=== PATIENT | male | born 1975 | race Caucasian/White ===

== ENCOUNTER 2021-11-16 12:33 | Inpatient (IN) | payer BC ==
[~2021-11-16] VITALS: Ht 172 cm; Wt 100.2 kg
--- NOTE | 2021-11-16 13:10 | ED Neurological Problem ---
General Chief Complaint: Neuro-Stroke Like Symptoms Stated Complaint: BLURRED VISION,DIZZINESS, HIGH BP 255/147 Nursing Triage Note: ARRIVED VIA WC TO ROOM 01 WITH COMPLAINTS OF HYPERTENSION. STATES HE HAS NOT BEEN TAKING HIS MEDS DUE TO NO INSURANCE. COMPLAINS OF HEADACHE AND BLURRED VISION. DENIES CHEST PAIN. Source: patient, family () Exam Limitations: no limitations History of Present Illness Date Seen by Provider: Nov 16, 2021 Time Seen by Provider: 12:55 Initial Comments Patient is a 46-year-old male who presents to the emergency department today wi th a chief complaint of generalized weakness, headache, "blurred vision" but on further history taking is actually double vision. He had multiple episodes of emesis this morning. Patient states he woke up in the middle of the night feeling like this. He has history of hypertension but has not been on medications for the last year and a half secondary to job loss and insurance lo ss. He is a smoker. Has been "sweating" all day long and not feeling well. Denies chest pain or shortness of breath. No abdominal pain. No numbness tingling or weakness in his extremities. His states that his gait has been off significantly this morning. No recent febrile illnesses. No unusual medications. He has been on hydralazine before. HIs states his high blood pressure was hard to treat - that it would sometimes take 3 doses of the hydralazine to get his BP down. All other review of systems reviewed and negative except as stated. Timing/Duration: other (12 hours) Severity: moderate Associated Symptoms: confusion, trouble walking, vision changes, other (headache) Allergies and Home Medications Allergies Coded Allergies: No Known Drug Allergies (Unverified , 11/16/21) Patient Home Medication List Home Medication List Reviewed: Yes Review of Systems Review of Systems Constitutional: see HPI, malaise Eyes: Blurred Vision, Decreased Acuity, Vision Changes ("double") Ears, Nose, Mouth, Throat: no symptoms reported Respiratory: no symptoms reported Cardiovascular: no symptoms reported Gastrointestinal: no symptoms reported Genitourinary: no symptoms reported Musculoskeletal: no symptoms reported Skin: other (sweating) Psychiatric/Neurological: Headache All Other Systems Reviewed Negative Unless Noted: Yes Past Dwmtzfz-Zgcgue-Jyyzrm Hx Patient Social History Smoking Status: Current Everyday Smoker Substance use?: No Alcohol Use?: No Immunizations Up To Date Second COVID19 Vaccination Jose Angel: UNKNOWN DATE COVID19 Vaccine Leaflet Or Newspaper Deliverer: SHANNAN Physical Exam Vital Signs Vital Signs - First Documented 11/16/21 12:45 Temp 36.3 Pulse 116 Resp 16 B/P (MAP) 246/148 (180) Pulse Ox 97 O2 Delivery Room Air Capillary Refill : Less Than 3 Seconds Height, Weight, BMI Height: '" Weight: lbs. oz. kg; 32.00 BMI Method: General Appearance: WD/WN, moderate distress, other (diaphoresis) HEENT: PERRL/EOMI, pharynx normal Neck: supple, normal inspection Respiratory: lungs clear, normal breath sounds, no respiratory distress, no accessory muscle use Cardiovascular: regular rate, rhythm, tachycardia (120's), systolic murmur (LUSB 3/6) Gastrointestinal: normal bowel sounds, non tender, soft Extremities: normal range of motion, non-tender, normal inspection, no pedal edema, no calf tenderness Neurologic/Psychiatric: no motor/sensory deficits, alert, normal mood/affect, oriented x 3, other (RIGHT LATERAL GAZE PALSY; normal strength and sensation) Crainal Nerves: normal hearing, normal speech, PERRL, abnormal eye position; No abnormal gag reflex Coordination/Gait: negative Romberg's sign, ABN nose to finger (R), ABN nose to finger (L) Motor/Sensory: no motor deficit, no sensory deficit, no pronator drift Skin: normal color, diaphoresis Stroke Onset of Symptoms Date of Onset of Symptoms: Nov 16, 2021 Time of Symptom Onset: 00:30 Onset of Symptoms: No Symptoms onset unknown: Yes NIH Stroke Scale Assessment Select: Initial Level of Consciousness: 0=Alert (0), Level of Consciousness- Questions: 0=Answers both month/age (0), LOC Commands: 0=Performs both tasks (0), Gaze: Partial Gaze Palsy (1), Visual Cortez: 0=No visual loss (0), Facial Movement (Facial Paresis): 0=Normal symmetrical mnt (0), Motor Function-Arms Right: 0=No drift (0), Motor Function-Arms Left: 0=No drift (0), Motor Function-Legs Right: 0=No drift (0), Motor Function-Legs Left: 0=No drift (0), Limb Ataxia: 2=Present in two limbs (2), Sensory: 0=Normal:no loss (0), Best Language: 0=No aphasia (0), Dysarthria: 0=Normal (0), Extinction & Inattention: 0=No abnormality (0), Total: 3 IV - TPa Received IV - TPa Procedure Performed?: No Progress/Results/Core Measures Results/Orders Lab Results Laboratory Tests Test 11/16/21 12:53 Range/Units White Blood Count 12.3 H 4.3-11.0 10^3/uL Red Blood Count 5.61 H 4.30-5.52 10^6/uL Hemoglobin 16.1 13.3-17.7 g/dL Hematocrit 47 40-54 % Mean Corpuscular Volume 85 80-99 fL Mean Corpuscular Hemoglobin 29 25-34 pg Mean Corpuscular Hemoglobin Concent 34 32-36 g/dL Red Cell Distribution Width 12.9 10.0-14.5 % Platelet Count 297 130-400 10^3/uL Mean Platelet Volume 10.1 9.0-12.2 fL Immature Granulocyte % (Auto) 0 % Neutrophils (%) (Auto) 83 H 42-75 % Lymphocytes (%) (Auto) 11 L 12-44 % Monocytes (%) (Auto) 5 0-12 % Eosinophils (%) (Auto) 0 0-10 % Basophils (%) (Auto) 0 0-10 % Neutrophils # (Auto) 10.3 H 1.8-7.8 10^3/uL Lymphocytes # (Auto) 1.3 1.0-4.0 10^3/uL Monocytes # (Auto) 0.6 0.0-1.0 10^3/uL Eosinophils # (Auto) 0.0 0.0-0.3 10^3/uL Basophils # (Auto) 0.0 0.0-0.1 10^3/uL Immature Granulocyte # (Auto) 0.1 0.0-0.1 10^3/uL Prothrombin Time 12.2 12.2-14.7 SEC INR Comment 0.9 0.8-1.4 Activated Partial Thromboplast Time 31 24-35 SEC Sodium Level 141 135-145 MMOL/L Potassium Level 4.1 3.6-5.0 MMOL/L Chloride Level 106 98-107 MMOL/L Carbon Dioxide Level 21 21-32 MMOL/L Anion Gap 14 5-14 MMOL/L Blood Urea Nitrogen 12 7-18 MG/DL Creatinine 0.89 0.60-1.30 MG/DL Estimat Glomerular Filtration Rate 106 BUN/Creatinine Ratio 13 Glucose Level 122 H 70-105 MG/DL Calcium Level 9.7 8.5-10.1 MG/DL Corrected Calcium 8.5-10.1 MG/DL Total Bilirubin 1.0 0.1-1.0 MG/DL Aspartate Amino Transf (AST/SGOT) 16 5-34 U/L Alanine Aminotransferase (ALT/SGPT) 31 0-55 U/L Alkaline Phosphatase 119 40-136 U/L Total Protein 7.9 6.4-8.2 GM/DL Albumin 4.8 H 3.2-4.5 GM/DL My Orders Orders - MELINDA LYNCH MD Ed Iv/Invasive Line Start (11/16/21 12:56) Cbc With Automated Diff (11/16/21 12:56) Comprehensive Metabolic Panel (11/16/21 12:56) Ekg Tracing (11/16/21 12:56) Ua Culture If Indicated (11/16/21 12:56) Chest 1 View, Ap/Pa Only (11/16/21 12:56) Ct Head Wo-R/O Stroke (11/16/21 13:04) Protime With Inr (11/16/21 13:04) Partial Thromboplastin Time (11/16/21 13:04) Ns (Ivpb) (Sodium C... W/Nicardipine Iv (11/16/21 13:15) Vital Signs/I&O 11/16/21 11/16/21 12:45 13:16 Temp 36.3 Pulse 116 111 Resp 16 B/P (MAP) 246/148 (180) 240/156 Pulse Ox 97 O2 Delivery Room Air Blood Pressure Mean: 180 Initial ECG Impression Date: Nov 16, 2021 Initial ECG Impression Time: 12:55 Initial ECG Rate: 121 Initial ECG Rhythm: S.Tach Initial ECG Intervals VA interval 100 QRS 102 QTc 384 Comment Sinus tachycardia, no ectopy, nonspecific ST-T wave change V6 as well as 1 and aVL. Q wave in lead III. Diagnostic Imaging Diagonstic Imaging: Xray Plain Films/CT/US/NM/MRI: chest Comments [facility] [place] [place] NAME: [facility]CRUZ [facility] REC#: [id number] PT STATUS: REG ER : 1975 PHYSICIAN: MELINDA LYNCH MD ADMIT DATE: 11/16/21/ER Draft Date of Exam:11/16/21 CHEST 1 VIEW, AP/PA ONLY INDICATION: hypertensive urgency. TECHNIQUE: Single view chest 12:56 PM. CORRELATION STUDY: 04/11/2016 FINDINGS: Heart size upper limits normal. Vasculature overall within normal limits. The lungs are clear with no consolidating infiltrate. There is no significant effusion or pneumothorax. IMPRESSION: 1. Borderline heart size without failure. Dictated on workstation # [id number] Dict: 11/16/21 1309 Trans: 11/16/21 1310 DO [id number] Interpreted by: ERIN RHOADES DO Electronically signed by: Departure Impression Primary Impression: Hypertensive emergency without congestive heart failure Disposition: ADMITTED INPATIENT Condition: Stable Admissions Decision to Admit Reason: Admit from ER (General) Decision to Admit/Date: Nov 16, 2021 Time/Decision to Admit Time: 13:37 Departure-Patient Inst. Referrals: MISSAEL BACK MD (PCP/Family) Primary Care Physician MELINDA LYNCH MD Nov 16, 2021 13:10
[2021-11-16] MEDS ORDERED: niCARdipine IV FOR DRIP 50 MG in NS (IVPB) 230 ML IV SCH ×2 (13:15→18:30)
[2021-11-16 13:18] LABS: BASOPHILS % (AUTO) 0 % (0-10); EOSINOPHILS % (AUTO) 0 % (0-10); HEMATOCRIT 47 % (40-54); HEMOGLOBIN 16.1 g/dL (13.3-17.7); LYMPHOCYTES # (AUTO) 1.3 10^3/uL (1.0-4.0); LYMPHOCYTES % (AUTO) 11 % (12-44); MEAN CORPUSCULAR HEMOGLOBIN 29 pg (25-34); MEAN CORPUSCULAR HGB CONC 34 g/dL (32-36); MEAN CORPUSCULAR VOLUME 85 fL (80-99); MEAN PLATELET VOLUME 10.1 fL (9.0-12.2); MONOCYTES # (AUTO) 0.6 10^3/uL (0.0-1.0); MONOCYTES % (AUTO) 5 % (0-12); NEUTROPHILS # (AUTO) 10.3 10^3/uL (1.8-7.8); NEUTROPHILS % (AUTO) 83 % (42-75); PLATELET COUNT 297 10^3/uL (130-400); WHITE BLOOD COUNT 12.3 10^3/uL (4.3-11.0)
[2021-11-16 13:20] LABS: ALBUMIN 4.8 GM/DL (3.2-4.5); CHLORIDE 106 MMOL/L (98-107); POTASSIUM 4.1 MMOL/L (3.6-5.0); SODIUM 141 MMOL/L (135-145)
[2021-11-16 13:22] LABS: CALCIUM 9.7 MG/DL (8.5-10.1)
[2021-11-16 13:23] LABS: GLUCOSE 122 MG/DL (70-105); TOTAL PROTEIN 7.9 GM/DL (6.4-8.2)
[2021-11-16 13:24] LABS: CARBON DIOXIDE 21 MMOL/L (21-32)
[2021-11-16 13:26] LABS: ALKALINE PHOSPHATASE 119 U/L (40-136); CREATININE SERUM 0.89 MG/DL (0.60-1.30); GFR ESTIMATED 106
[2021-11-16 13:27] LABS: BUN/CREATININE RATIO 13
[2021-11-16 13:29] LABS: ALANINE AMINOTRANSFERASE 31 U/L (0-55)
[2021-11-16 13:39] LABS: INR 0.9 (0.8-1.4); PROTHROMBIN TIME PATIENT 12.2 SEC (12.2-14.7)
--- NOTE | 2021-11-16 14:03 | Diagnostic Imaging Report ---
CLINICAL INDICATION: Patient with right lateral gaze/palsy. Patient complains of headache and blurred vision. EXAM: Axial CT scan of the brain performed without IV contrast. High-resolution axial CT brain images with sagittal and coronal reformations were also created. Auto Exposure Controls were utilized during the CT exam to meet ALARA standards for radiation dose reduction. COMPARISON: None. FINDINGS: There is no evidence of acute cerebral infarct, intracranial hemorrhage, or gross mass effect. There is a 13 mm x 6 mm circumscribed low-density area beneath the left putamen which is suspected to represent a prominent perivascular space. The brain parenchymal volume appears appropriate for patient's age. There is normal miramontes-white matter distinction. There is no significant midline shift or herniation. There is no evidence of hydrocephalus. The basal cisterns are unremarkable. The skull, extracranial soft tissue, and orbits are unremarkable. There is moderate mucosal thickening involving the ethmoid sinus. There is mild mucosal thickening involving both maxillary sinuses, sphenoid sinus and frontal sinus. Temporal bones show no significant abnormality. IMPRESSION: 1: There is no CT evidence of acute intracranial process. There is no dense vessel sign. 2: Likely prominent perivascular space beneath the left putamen region. 3: Diffuse paranasal sinus disease. Results of this report were discussed with Dr. She Stone via the telephone on 11/16/2021 at 1355 hours. [id number] Dictated by: Dictated on workstation # [id number]
[2021-11-16] MEDS ORDERED: IOHEXOL 350 MG/ML 100 ML (OMNIPAQUE 350) VIAL IV ONE (14:45)
[2021-11-16] MEDS ORDERED: CATHETER FLUSH 10 ML SYR IV PRN (14:45)
[2021-11-16] MEDS ORDERED: HOLD METFORMIN - RECEIVED CONTRAST 20 ML VIAL IV SCH (14:45)
[2021-11-16] MEDS ORDERED: NS 100 ML (IVPB) BAG IV ONE (14:45)
--- NOTE | 2021-11-16 15:38 | Diagnostic Imaging Report ---
PROCEDURE: CT angiography of the head and CT angiography of the neck with and without contrast. TECHNIQUE: Contiguous noncontrast images were obtained from the skull base through the vertex. After intravenous contrast administration, helical CT angiography of the neck was performed. Source data was reformatted into 3D MIP projections. Delayed postcontrast acquisition was also obtained. Auto Exposure Controls were utilized during the CT exam to meet ALARA standards for radiation dose reduction. INDICATION: Acute neurologic deficit. Headache. Blurred vision. Hypertension. COMPARISON: CT head without contrast 11/16/2021. FINDINGS: Noncontrast head CT was not repeated. There remains no evidence of a large intracranial hemorrhage or extra-axial fluid collection on the postcontrast imaging. No abnormal intracranial enhancement. No hydrocephalus. No evidence of an acute territorial infarction. CTA demonstrates a conventional aortic arch. Atherosclerotic calcifications result in less than 50% narrowing of the internal carotid artery origin bilaterally. No large vessel occlusion. The basilar, bilateral vertebral, common carotid, internal carotid, anterior cerebral, middle cerebral, and posterior cerebral arteries demonstrate no high-grade narrowing, aneurysm, or dissection. The dural venous sinuses are normally opacified. Moderate mucosal thickening in the maxillary, ethmoid, and sphenoid sinuses. The mastoids are clear. No acute findings in the neck soft tissues. The lung apices are unremarkable. IMPRESSION: 1. No large vessel occlusion. No high-grade narrowing, aneurysm, or dissection involving the major arteries in the head and neck. 2. Atherosclerotic disease results in less than 50% narrowing of the bilateral internal carotid artery origins. Dictated by: Dictated on workstation # [id number]
[2021-11-16] MEDS ORDERED: LOSARTAN 100 MG (COZAAR) TABLET PO ONE (16:30)
[2021-11-16] MEDS ORDERED: meTOprolol SUCCINATE 100 MG (TOPROL XL) TAB PO ONE (16:45)
--- NOTE | 2021-11-16 17:43 | History & Physical ---
History of Present Illness History of Present Illness Reason for visit/HPI Pt is a 46y/o male who presented to the ER with complaint of dizziness, blurry vision, weakness and headache. He was found to be profoundly hypertensive in the ER with BP in the 240/120's. A stroke work-up was initiated due to the symptoms and [facility] was consulted with their response indicating that they did not feel a transfer was necessary due to his lack of signs on the CT or CTA indicating a lack of large vessel occlusion. [facility] recommended keeping his pressures in the 190's systolic for now and an MRI in the morning if possible. Pt has not been on antihypertensive therapy for almost 2 years due to loss of employment and insurance. He has hx of difficult to treat hypertension. Date of Admission Nov 16, 2021 at 16:35 Date Seen by a Provider: Nov 16, 2021 Time Seen by a Provider: 17:30 Attending Physician Missael Grimes MD Admitting Physician Admitting Physician: Missael Grimes MD Consult Chava Eugene MD - cardiology EICU - critical care Allergies and Home Medications Allergies Coded Allergies: No Known Drug Allergies (Unverified , 11/16/21) Patient Home Medication List Home Medication List Reviewed: Yes Past Vcrmwfk-Yvlfxk-Xatbew Hx Patient Social History Marrital Status: Living Status: lives with spouse in their home Employed/Student: employed (at [employer]) Smoking Status: Current Everyday Smoker (1+ppd) Use of E-Cig and/or Vaping dev: No Substance use?: No Alcohol Use?: Yes Alcohol type: Beer Alcohol Frequency: Couple times a week Pt feels they are or have been: No Immunizations Up To Date Second COVID19 Vaccination Jose Angel: UNKNOWN DATE Seasonal Allergies Seasonal Allergies: No Current Status Advance Directives: No Primary Language: [place] Citizen Preferred Spoken Language: [place] Citizen Is interpretation needed?: No Implanted or Applied Medical D: None Past Medical History Currently Using CPAP: No Currently Using BIPAP: No Hypertension Sexually Transmitted Disease: No HIV/AIDS: No Loss of Vision: Denies (wears glasses) Did You Recieve Any Treatments: No Blood Disorders: No Adverse Reaction/Blood Tranf: No Family Medical History Reviewed and Corrections made Heart Disease (mother and maternal grandfather), Hypertension (mother and maternal grandfather) Review of Systems Constitutional: No chills, No diaphoresis; dizziness; No fever, No malaise, No weakness EENTM: blurred vision, double vision; No hoarseness, No throat pain Respiratory: No cough, No dyspnea on exertion, No short of breath Cardiovascular: No chest pain, No palpitations, No syncope Gastrointestinal: No abdominal pain, No constipation, No diarrhea, No loss of appetite, No nausea, No vomiting Genitourinary: no symptoms reported Musculoskeletal: no symptoms reported Skin: no symptoms reported Psychiatric/Neurological: Denies Anxiety, Denies Depressed; Headache; Denies Numbness, Denies Paresthesia, Denies Pre-Existing Deficit, Denies Seizure, Denies Tingling, Denies Tremors, Denies Weakness All Other Systems Reviewed Negative Unless Noted: Yes Physical Exam Vital Signs Vital Signs - First Documented 11/16/21 12:45 Temp 36.3 Pulse 116 Resp 16 B/P (MAP) 246/148 (180) Pulse Ox 97 O2 Delivery Room Air Capillary Refill : Less Than 3 Seconds Height, Weight, BMI Height: '" Weight: lbs. oz. kg; 32.00 BMI Method: General Appearance: No Apparent Distress, WD/WN Eyes: Right Eye Abnormal EOM (right eye movement intact to directed exam, but has lateral gaze on right eye when not engaging in exam); Left Eye EOMI; Bilateral Eye PERRL Neck: Full Range of Motion, Non Tender, Supple Respiratory: Chest Non Tender, Lungs Clear, Normal Breath Sounds, No Accessory Muscle Use, No Respiratory Distress Cardiovascular: Regular Rate, Rhythm, No Edema, No Murmur, Normal Peripheral Pulses Gastrointestinal: Normal Bowel Sounds, No Organomegaly, No Pulsatile Mass, Non Tender, Soft Rectal: Deferred Extremity: Normal Capillary Refill, Non Tender, No Calf Tenderness, No Pedal Edema Neurologic/Psychiatric: Alert, Oriented x3, Normal Mood/Affect; No Depressed Affect; EOM Palsy (right lateral gaze); No Facial Droop, No Motor Weakness, No Sensory Deficit Skin: Normal Color; No Cool, No Cyanosis; Diaphoresis Lymphatic: No Adenopathy Assessment/Plan Assessment and Plan Hypertensive emergency/crisis Uncontrolled chronic hypertension Medication noncompliance Right lateral gaze palsy Leukocytosis Elevated glucose Hypertensive emergency/crisis with Chronically Uncontrolled hypertension - Medication noncompliance due to financial difficulties - will ask perinatal social worker for consult/aide - CT findings as below: CTA COMPARISON: CT head without contrast 11/16/2021. FINDINGS: Noncontrast head CT was not repeated. There remains no evidence of a large intracranial hemorrhage or extra-axial fluid collection on the postcontrast imaging. No abnormal intracranial enhancement. No hydrocephalus. No evidence of an acute territorial infarction. CTA demonstrates a conventional aortic arch. Atherosclerotic calcifications result in less than 50% narrowing of the internal carotid artery origin bilaterally. No large vessel occlusion. The basilar, bilateral vertebral, common carotid, internal carotid, anterior cerebral, middle cerebral, and posterior cerebral arteries demonstrate no high-grade narrowing, aneurysm, or dissection. The dural venous sinuses are normally opacified. Moderate mucosal thickening in the maxillary, ethmoid, and sphenoid sinuses. The mastoids are clear. No acute findings in the neck soft tissues. The lung apices are unremarkable. IMPRESSION: 1. No large vessel occlusion. No high-grade narrowing, aneurysm, or dissection involving the major arteries in the head and neck. 2. Atherosclerotic disease results in less than 50% narrowing of the bilateral internal carotid artery origins. - planning on Carotid US, Renal US, ECHO and consult to Dr. Eugene - resume nicardipine drip - goal BP not less than 190 for now Right lateral gaze palsy - per [facility] - should improve with resolution of blood pressure crisis, monitor symptoms Leukocytosis - repeat labs in morning Elevated glucose - check hgba1c in morning dvt prophylaxis with scd's lovenox gi prophylaxis with ppi therapy Admission Diagnosis Hypertensive emergency/crisis Uncontrolled chronic hypertension Medication noncompliance Right lateral gaze palsy Leukocytosis Elevated glucose Admission Status: Inpatient Order (span 2 midnights) Reason for Inpatient Admission: inpt admission for severely elevated blood pressure - will require at least 48-72 hours prior to stablization and medication adjustments are completed Clinical Quality Measures Stroke: Date of last known well: Nov 16, 2021 Time of last known well: 00:30 Symptoms onset unknown: Yes MISSAEL GRIMES MD Nov 16, 2021 17:43
[2021-11-16] MEDS ORDERED: ONDANSETRON 4 MG/2 ML (SDV) Z0FRAN IV PRN (18:00)
[2021-11-16] MEDS: NS IV 1000 ML 1,000 ML IV SCH (18:14)
--- NOTE | 2021-11-16 18:24 | Tele-ICU Consult ---
History of Present Illness History of Present Illness Date Seen by Provider: Nov 16, 2021 Time Seen by Provider: 18:19 Date of Admission (Tele-ICU Physician , consultation) Available chart/ vitals / labs / Images reviewed H&P is from ER notes Patient's information available about PMH, Shx, Fhx allergy reviewed inEMR. ROS as per chart and RN report Now in ICU, hemodynamically stable Video assessment done using teleICU camera, rest of exam as per RN Discussed with RN. A/P HTN urgency ( known HTN , not taking meds ) -cardene gtt on hold now= to resume -on presentation BP 246/140 ( MAP 180 -will plan in next 24H decrease by 25 % - by evening time MAP 160 , late evening 150 and morning map 130s ( by tomorrow decrease 25% from presentation goal and <160/<110 mmHg ( next few hours target BP of <180/<120 mmHg Dissiness/ nausea - CTA head/neck - 50% narrowing of the bilateral internal carotid artery origins. Cards consulted Lines : , (Central Line Necessity Reviewed) Levy: OG: Nutrition: Analgesia: Anxiety/ delirium VTE Prophylaxis: scd Stress Ulcer Prophylaxis: na Plans in collaboration with bedside consultants and IM MDs. Discussed with RN to reach out if any questions or concerns A total of 31 minutes of critical care time was devoted to this patient today, required to treat and/or prevent further deterioration of critical care condition ( as above ) . Allergies and Home Medications Allergies Coded Allergies: No Known Drug Allergies (Unverified , 11/16/21) Past Medical/Social/Family Hx Patient Social History Smoking Status: Current Everyday Smoker Substance use?: No Alcohol Use?: No Immunizations Up To Date Second COVID19 Vaccination Jose Angel: UNKNOWN DATE Current Status Primary Language: Yi Preferred Spoken Language: Yi Review of Systems Constitutional: see HPI Focused Exam Height, Weight, BMI Height: '" Weight: lbs. oz. kg; 32.00 BMI Method: Exam Exam Patient acknowledged, consented, and participated in this virtual visit which was conducted using real time audio/video Vital Signs Date Time Temp Pulse Resp B/P (MAP) Pulse Ox O2 Delivery O2 Flow Rate FiO2 11/16/21 18:00 22 227/137 99 Room Air 11/16/21 17:55 92 11/16/21 17:45 93 31 209/140 95 Room Air 11/16/21 17:45 205/126 99 Room Air 11/16/21 13:42 110 187/115 11/16/21 13:16 111 240/156 11/16/21 12:45 36.3 116 16 246/148 (180) 97 Room Air Height & Weight Height: '" Weight: lbs. oz. kg; 32.00 BMI Method: General Appearance: No Apparent Distress Capillary Refill: Less Than 3 Seconds Gastrointestinal: normal bowel sounds, non tender, soft Results Lab Laboratory Tests 11/16/21 12:53 Assessment/Plan Assessment/Plan 1 HERNAN CANSECO MD Nov 16, 2021 18:24
[2021-11-16] MEDS ORDERED: hydrALAZINE (APESOLINE) 20 MG/ML VIAL IV PRN (18:30)
[2021-11-16] MEDS: SODIUM CHLORIDE IV SCH (18:57)
[2021-11-16] MEDS: NICARDIPINE IV SCH (18:57)
[2021-11-16] MEDS: cloNIDine 0.1 MG (CATAPRES) TAB PO SCH (20:42)
[2021-11-16 21:11] VITALS: BP 246/148
[2021-11-16 21:11] LABS: BILIRUBIN,URINE NEGATIVE (NEGATIVE); CLARITY,URINE CLEAR; COLOR,URINE YELLOW; GLUCOSE, URINE (UA) NEGATIVE (NEGATIVE); KETONES,URINE NEGATIVE (NEGATIVE); LEUKOCYTE ESTERASE ,URINE NEGATIVE (NEGATIVE); NITRITE,URINE NEGATIVE (NEGATIVE); PROTEIN,URINE NEGATIVE (NEGATIVE)
[2021-11-16] MEDS ORDERED: RT-ALBUTEROL SULF 2.5 MG/3 ML PRE-MIX VIAL INH PRN (21:15)
[2021-11-16 21:17] LABS: RBC,URINE RARE /HPF
[2021-11-16 21:18] LABS: BACTERIA,URINE NEGATIVE /HPF; WBC,URINE RARE /HPF
[2021-11-17 04:29] LABS: HEMATOCRIT 44 % (40-54); HEMOGLOBIN 14.7 g/dL (13.3-17.7); MEAN CORPUSCULAR HEMOGLOBIN 29 pg (25-34); MEAN CORPUSCULAR HGB CONC 34 g/dL (32-36); MEAN CORPUSCULAR VOLUME 85 fL (80-99); MEAN PLATELET VOLUME 10.4 fL (9.0-12.2); PLATELET COUNT 245 10^3/uL (130-400); WHITE BLOOD COUNT 9.5 10^3/uL (4.3-11.0)
[2021-11-17 04:46] LABS: ALBUMIN 4.2 GM/DL (3.2-4.5); POTASSIUM 4.1 MMOL/L (3.6-5.0)
[2021-11-17 04:47] LABS: CALCIUM 9.2 MG/DL (8.5-10.1)
[2021-11-17 04:49] LABS: TOTAL PROTEIN 6.9 GM/DL (6.4-8.2)
[2021-11-17 04:52] LABS: CREATININE SERUM 0.82 MG/DL (0.60-1.30)
[2021-11-17] MEDS: NICARDIPINE IV SCH ×2 (04:57→12:04)
[2021-11-17] MEDS: SODIUM CHLORIDE IV SCH ×2 (04:57→12:04)
--- NOTE | 2021-11-17 07:26 | Progress Note ---
Subjective Subjective Date Seen by Provider: Nov 17, 2021 Time Seen by Provider: 08:20 Monico Rosario is a 46y/o M who is being seen for follow up due to hypertensive emergency. He states that he is feeling better this morning. Denies having any chest pain or palpitations. Reports that his vision has improved but he is still having some double vision. No dizziness when he is laying in bed. Able to sleep okay last night he states. Denies having any headaches. When asked he denied having any other concerns. Review of Systems General: No Chills, No Night Sweats HEENT: No Head Aches; Visual Changes (double vision) Pulmonary: No Dyspnea, No Cough Cardiovascular: No: Chest Pain, Palpitations Gastrointestinal: Nausea; No: Vomiting, Abdominal Pain Genitourinary: No Dysuria, No Frequency Musculoskeletal: No: neck pain, back pain Neurological: No: Weakness, Numbness All Other Systems Reviewed All Other Systems Reviewed: Yes Objective Exam Vital Signs Vital Signs Date Time Temp Pulse Resp B/P (MAP) Pulse Ox O2 Delivery O2 Flow Rate FiO2 11/17/21 06:00 67 10 165/113 98 Room Air 11/17/21 05:23 36.9 11/17/21 05:00 64 15 153/94 93 Room Air 11/17/21 04:00 Room Air 11/17/21 04:00 66 28 149/101 94 Room Air 11/17/21 03:00 68 18 128/78 94 Room Air 11/17/21 02:00 68 16 127/70 93 Room Air 11/17/21 01:00 75 18 120/77 94 Room Air 11/17/21 01:00 75 11/17/21 00:00 68 26 139/74 91 Room Air 11/16/21 23:08 Room Air 11/16/21 23:00 74 18 139/88 94 Room Air 11/16/21 22:00 76 28 149/103 94 Room Air 11/16/21 21:11 36.3 116 97 21 11/16/21 21:00 81 25 142/101 97 Room Air 11/16/21 20:00 Room Air 11/16/21 20:00 82 12 210/129 96 Room Air 11/16/21 20:00 36.6 11/16/21 19:00 91 30 193/107 98 Room Air 11/16/21 19:00 91 11/16/21 18:57 81 234/167 11/16/21 18:30 96 23 225/129 98 Room Air 11/16/21 18:24 Room Air 11/16/21 18:15 89 21 217/134 98 Room Air 11/16/21 18:00 22 227/137 99 Room Air 11/16/21 17:55 92 11/16/21 17:45 93 31 209/140 95 Room Air 11/16/21 17:45 205/126 99 Room Air 11/16/21 13:42 110 187/115 11/16/21 13:16 111 240/156 11/16/21 12:45 36.3 116 16 246/148 (180) 97 Room Air I & O 11/17/21 07:00 Intake Total 110 ml Output Total 1360 ml Balance -1250 ml General Appearance: No Apparent Distress, WD/WN Eyes: Bilateral Eye PERRL HEENT: PERRL/EOMI; No Photophobia Neck: Non Tender, Supple Respiratory: Lungs Clear, Normal Breath Sounds, No Accessory Muscle Use, No Respiratory Distress Cardiovascular: Regular Rate, Rhythm, No Edema, No Murmur, Normal Peripheral Pulses Gastrointestinal: Normal Bowel Sounds, No Organomegaly, No Pulsatile Mass, Non Tender, Soft Rectal: Deferred Extremity: Normal Capillary Refill, Non Tender, No Calf Tenderness, No Pedal Edema Neurologic/Psychiatric: Alert, Oriented x3, Normal Mood/Affect; No Facial Droop Skin: Normal Color; No Cool, No Cyanosis; Diaphoresis Lymphatic: No Adenopathy Results Lab Laboratory Tests 11/16/21 12:53: White Blood Count 12.3H, Red Blood Count 5.61H, Hemoglobin 16.1, Hematocrit 47, Mean Corpuscular Volume 85, Mean Corpuscular Hemoglobin 29, Mean Corpuscular Hemoglobin Concent 34, Red Cell Distribution Width 12.9, Platelet Count 297, Mean Platelet Volume 10.1, Immature Granulocyte % (Auto) 0, Neutrophils (%) (Auto) 83H, Lymphocytes (%) (Auto) 11L, Monocytes (%) (Auto) 5, Eosinophils (%) (Auto) 0, Basophils (%) (Auto) 0, Neutrophils # (Auto) 10.3H, Lymphocytes # (Auto) 1.3, Monocytes # (Auto) 0.6, Eosinophils # (Auto) 0.0, Basophils # (Auto) 0.0, Immature Granulocyte # (Auto) 0.1, Prothrombin Time 12.2, INR Comment 0.9, Activated Partial Thromboplast Time 31, Sodium Level 141, Potassium Level 4.1, Chloride Level 106, Carbon Dioxide Level 21, Anion Gap 14, Blood Urea Nitrogen 12, Creatinine 0.89, Estimat Glomerular Filtration Rate 106, BUN/Creatinine Ratio 13, Glucose Level 122H, Calcium Level 9.7, Corrected Calcium , Total Bilirubin 1.0, Aspartate Amino Transf (AST/SGOT) 16, Alanine Aminotransferase (ALT/SGPT) 31, Alkaline Phosphatase 119, Total Protein 7.9, Albumin 4.8H 11/16/21 21:01: Urine Color YELLOW, Urine Clarity CLEAR, Urine pH 7.0, Urine Specific [place] 1.010L, Urine Protein NEGATIVE, Urine Glucose (UA) NEGATIVE, Urine Ketones NEGATIVE, Urine Nitrite NEGATIVE, Urine Bilirubin NEGATIVE, Urine Urobilinogen 0.2, Urine Leukocyte Esterase NEGATIVE, Urine RBC (Auto) NEGATIVE, Urine RBC RARE, Urine WBC RARE, Urine Squamous Epithelial Cells NONE, Urine Renal Epitheli al Cells NONE, Urine Crystals NONE, Urine Bacteria NEGATIVE, Urine Casts NONE, Urine Mucus NEGATIVE, Urine Culture Indicated NO 11/17/21 03:48: White Blood Count 9.5, Red Blood Count 5.11, Hemoglobin 14.7, Hematocrit 44, Mean Corpuscular Volume 85, Mean Corpuscular Hemoglobin 29, Mean Corpuscular Hemoglobin Concent 34, Red Cell Distribution Width 13.0, Platelet Count 245, Mean Platelet Volume 10.4, Sodium Level 139, Potassium Level 4.1, Chloride Level 107, Carbon Dioxide Level 19L, Anion Gap 13, Blood Urea Nitrogen 12, Creatinine 0.82, Estimat Glomerular Filtration Rate 108, BUN/Creatinine Ratio 15, Glucose Level 93, Calcium Level 9.2, Corrected Calcium 9.0, Total Bilirubin 1.0, Aspartate Amino Transf (AST/SGOT) 15, Alanine Aminotransferase (ALT/SGPT) 26, Alkaline Phosphatase 103, Total Protein 6.9, Albumin 4.2, Cholesterol Level 232H Assessment/Plan Assessment/Plan Admission Dx Hypertensive emergency/crisis Uncontrolled chronic hypertension Medication noncompliance Right lateral gaze palsy Leukocytosis Elevated glucose Assessment and Plan Hypertensive emergency/crisis Uncontrolled chronic hypertension Medication noncompliance Right lateral gaze palsy Leukocytosis Elevated glucose Hypertensive emergency/crisis with Chronically Uncontrolled hypertension - Medication noncompliance due to financial difficulties - will ask child protective services social worker for consult/aide - CT findings as below: CTA COMPARISON: CT head without contrast 11/16/2021. FINDINGS: Noncontrast head CT was not repeated. There remains no evidence of a large intracranial hemorrhage or extra-axial fluid collection on the postcontrast imaging. No abnormal intracranial enhancement. No hydrocephalus. No evidence of an acute territorial infarction. CTA demonstrates a conventional aortic arch. Atherosclerotic calcifications result in less than 50% narrowing of the internal carotid artery origin bilaterally. No large vessel occlusion. The basilar, bilateral vertebral, common carotid, internal carotid, anterior cerebral, middle cerebral, and posterior cerebral arteries demonstrate no high-grade narrowing, aneurysm, or dissection. The dural venous sinuses are normally opacified. Moderate mucosal thickening in the maxillary, ethmoid, and sphenoid sinuses. The mastoids are clear. No acute findings in the neck soft tissues. The lung apices are unremarkable. IMPRESSION: 1. No large vessel occlusion. No high-grade narrowing, aneurysm, or dissection involving the major arteries in the head and neck. 2. Atherosclerotic disease results in less than 50% narrowing of the bilateral internal carotid artery origins. - planning on Carotid US, Renal US, ECHO and consult to Dr. Eugene - currently on nicardipine drip, metoprolol QD, losartan QD, hydralazine Q4H PRN, clonidine BID - followed by cardiology and eICU Right lateral gaze palsy - per [facility] - should improve with resolution of blood pressure crisis, monitor symptoms - has improved today Leukocytosis - improved today at 9.5, down from 12.3 yesterday Elevated glucose - pending hgba1c dvt prophylaxis with scd's lovenox gi prophylaxis with ppi therapy Clinical Quality Measures Stroke: Date of last known well: Nov 16, 2021 Time of last known well: 00:30 Symptoms onset unknown: Yes Supervisory-Addendum Brief Verification & Attestation Participated in pt care: history, MDM, physical Personally performed: exam, history, MDM, supervision of care Care discussed with: Medical Student Procedures: n/a Results interpretation: Verified all documentation agree with student note as documented Monico is feeling a little better today. Pt still having double vision, but on physical exam right lateral palsy appears to be slightly improved compared to exam yesterday evening. plan for echo, carotid us, mri of brain and renal artery doppler today. will add lipitor waiting on hgba1c report anticipate another day in the icu as we see how he does off of the drip and on oral medications. may need to reinitate drip, therefore will keep pt in icu status to closely/frequently monitor pressures JIMMY ZHOU Nov 17, 2021 07:26 MISSAEL BACK MD Nov 17, 2021 09:11
[2021-11-17] MEDS: meTOprolol SUCCINATE 100 MG (TOPROL XL) TAB PO SCH (07:56)
[2021-11-17] MEDS: cloNIDine 0.1 MG (CATAPRES) TAB PO SCH ×2 (07:56→20:18)
--- NOTE | 2021-11-17 08:10 | Consultation-Cardiology ---
HPI-Cardiology Cardiology Consultation Date of Consultation 11/17/21 Date of Admission Time Seen by Provider: 08:04 Indication: Hypertensive emergency HPI 46 years old gentleman with history of hypertension, patient has been noncompliant with medication did not take any blood pressure medication for the past 2 years. He came into the emergency room for generalized weakness, double vision and blurred vision and headache. His blood pressure was 240/120. Stroke work-up was initiated in the emergency room and [facility] was consulted. Work-up so far has been negative. He was started on Cardene and his blood pressure normalized. Cardene drip was stopped. This morning his blood pressure is elevated again. He is off Cardene. Receiving his oral blood pressure medications this morning. He denied any chest pain, has not been checking his blood pressure at home. No palpitation. No syncope or near syncopal episodes. No claudications. Home Medications & Allergies Allergies: Coded Allergies: No Known Drug Allergies (Unverified , 11/16/21) Home Medication List Reviewed: Yes Not taking any medication at home INE-Rwrobh-Apomtg Hx Patient Social History Marital Status: Living Status: lives with spouse in their home Employed/Student: employed (at [employer]) Smoking Status: Current Everyday Smoker (1+ppd) Have you traveled recently?: No Alcohol Use?: Yes Past Medical History Hypertension Family Medical History Significant Family History: Heart Disease (mother and maternal grandfather), Hypertension (mother and maternal grandfather) Family Medical Hx Mother has history of heart disease Review of Systems-General Review of Systems Constitutional: see HPI; No chills, No diaphoresis; dizziness; No fever, No malaise, No weakness EENTM: see HPI, blurred vision, double vision; No hoarseness, No throat pain Respiratory: see HPI; No cough, No dyspnea on exertion, No short of breath Cardiovascular: see HPI; No chest pain, No edema, No Hx of Intervention, No palpitations, No syncope, No vascular heart diseas, No other Gastrointestinal: see HPI; No abdominal pain, No constipation, No diarrhea, No loss of appetite; nausea; No vomiting Genitourinary: no symptoms reported, see HPI Musculoskeletal: no symptoms reported, see HPI Skin: no symptoms reported, see HPI Psychiatric/Neurological: See HPI; Denies Anxiety, Denies Depressed; Headache; Denies Numbness, Denies Paresthesia, Denies Pre-Existing Deficit, Denies Seizure, Denies Tingling, Denies Tremors, Denies Weakness All Other Systems Reviewed Negative Unless Noted: Yes Reviewed Test Results Reviewed Test Results Lab Laboratory Tests Test 11/16/21 12:53 11/16/21 21:01 11/17/21 03:48 Range/Units White Blood Count 12.3 H 9.5 4.3-11.0 10^3/uL Red Blood Count 5.61 H 5.11 4.30-5.52 10^6/uL Hemoglobin 16.1 14.7 13.3-17.7 g/dL Hematocrit 47 44 40-54 % Mean Corpuscular Volume 85 85 80-99 fL Mean Corpuscular Hemoglobin 29 29 25-34 pg Mean Corpuscular Hemoglobin Concent 34 34 32-36 g/dL Red Cell Distribution Width 12.9 13.0 10.0-14.5 % Platelet Count 297 245 130-400 10^3/uL Mean Platelet Volume 10.1 10.4 9.0-12.2 fL Immature Granulocyte % (Auto) 0 % Neutrophils (%) (Auto) 83 H 42-75 % Lymphocytes (%) (Auto) 11 L 12-44 % Monocytes (%) (Auto) 5 0-12 % Eosinophils (%) (Auto) 0 0-10 % Basophils (%) (Auto) 0 0-10 % Neutrophils # (Auto) 10.3 H 1.8-7.8 10^3/uL Lymphocytes # (Auto) 1.3 1.0-4.0 10^3/uL Monocytes # (Auto) 0.6 0.0-1.0 10^3/uL Eosinophils # (Auto) 0.0 0.0-0.3 10^3/uL Basophils # (Auto) 0.0 0.0-0.1 10^3/uL Immature Granulocyte # (Auto) 0.1 0.0-0.1 10^3/uL Prothrombin Time 12.2 12.2-14.7 SEC INR Comment 0.9 0.8-1.4 Activated Partial Thromboplast Time 31 24-35 SEC Sodium Level 141 139 135-145 MMOL/L Potassium Level 4.1 4.1 3.6-5.0 MMOL/L Chloride Level 106 107 98-107 MMOL/L Carbon Dioxide Level 21 19 L 21-32 MMOL/L Anion Gap 14 13 5-14 MMOL/L Blood Urea Nitrogen 12 12 7-18 MG/DL Creatinine 0.89 0.82 0.60-1.30 MG/DL Estimat Glomerular Filtration Rate 106 108 BUN/Creatinine Ratio 13 15 Glucose Level 122 H 93 70-105 MG/DL Calcium Level 9.7 9.2 8.5-10.1 MG/DL Corrected Calcium 9.0 8.5-10.1 MG/DL Total Bilirubin 1.0 1.0 0.1-1.0 MG/DL Aspartate Amino Transf (AST/SGOT) 16 15 5-34 U/L Alanine Aminotransferase (ALT/SGPT) 31 26 0-55 U/L Alkaline Phosphatase 119 103 40-136 U/L Total Protein 7.9 6.9 6.4-8.2 GM/DL Albumin 4.8 H 4.2 3.2-4.5 GM/DL Urine Color YELLOW Urine Clarity CLEAR Urine pH 7.0 5-9 Urine Specific [place] 1.010 L 1.016-1.022 Urine Protein NEGATIVE NEGATIVE Urine Glucose (UA) NEGATIVE NEGATIVE Urine Ketones NEGATIVE NEGATIVE Urine Nitrite NEGATIVE NEGATIVE Urine Bilirubin NEGATIVE NEGATIVE Urine Urobilinogen 0.2 < = 1.0 MG/DL Urine Leukocyte Esterase NEGATIVE NEGATIVE Urine RBC (Auto) NEGATIVE NEGATIVE Urine RBC RARE /HPF Urine WBC RARE /HPF Urine Squamous Epithelial Cells NONE /HPF Urine Renal Epithelial Cells NONE /HPF Urine Crystals NONE /LPF Urine Bacteria NEGATIVE /HPF Urine Casts NONE /LPF Urine Mucus NEGATIVE /LPF Urine Culture Indicated NO Cholesterol Level 232 H < 200 MG/DL Physical Exam Physical Exam Vital Signs Vital Signs - First Documented 11/16/21 11/16/21 12:45 21:11 Temp 36.3 Pulse 116 Resp 16 B/P (MAP) 246/148 (180) Pulse Ox 97 O2 Delivery Room Air FiO2 21 Capillary Refill : Less Than 3 Seconds Height, Weight, BMI Height: '" Weight: lbs. oz. kg; 32.44 BMI Method: General Appearance: No Apparent Distress, WD/WN HEENT: PERRL/EOMI; No Photophobia Neck: Non Tender, Supple Respiratory: Lungs Clear, Normal Breath Sounds, No Accessory Muscle Use, No Respiratory Distress Cardiovascular: Regular Rate, Rhythm, No Edema, No Murmur, Normal Peripheral Pulses Gastrointestinal: Normal Bowel Sounds, No Organomegaly, No Pulsatile Mass, Non Tender, Soft Rectal: Deferred Extremity: Normal Capillary Refill, Non Tender, No Calf Tenderness, No Pedal Edema Neurologic/Psychiatric: Alert, Oriented x3, Normal Mood/Affect; No Facial Droop Skin: Normal Color; No Cool, No Cyanosis; Diaphoresis Lymphatic: No Adenopathy A/P-Cardiology Admission Diagnosis Hypertensive emergency Headache Double vision Hyperlipidemia Assessment/Plan Hypertensive emergency, blood pressure is still elevated this morning. I started him on losartan 100 mg daily, Toprol-XL 100 mg daily, clonidine 0.1 mg twice daily in addition to hydralazine IV as needed I will continue monitoring blood pressure, evaluate 2D echo Headache with double vision, could be secondary to hypertensive emergency, Work-up for stroke has been negative so far. Continue to monitor closely. Tobaccoism, educated on smoking cessation. Hyperlipidemia, I will evaluate full lipid profile Obesity, BMI 32 Family history of atherosclerosis Acute congestive heart failure, left ventricular systolic dysfunction, planning to evaluate cardiac catheterization possible PTCA Continue to maximize medical therapy And planning to switch him to Entresto I will schedule him for LifeVest evaluation Clinical Quality Measures Stroke: Date of last known well: Nov 16, 2021 Time of last known well: 003 Symptoms onset unknown: Yes BASHIR HOWARD MD Nov 17, 2021 08:10
[2021-11-17 08:33] LABS: CHOLESTEROL 234 MG/DL (< 200); HDL CHOLESTEROL 42 MG/DL (40-60); TRIGLYCERIDES 151 MG/DL (<150); VLDL CHOLESTEROL 30 MG/DL (5-40)
--- NOTE | 2021-11-17 08:56 | Tele-ICU Progress Note ---
Subjective Date Seen by a Provider: Nov 17, 2021 Time Seen by a Provider: 08:55 Subjective/Events-last exam Available chart/vitals/labs/images reviewed. Video assessment done using telemetry ICU camera, rest of exam as per RN. Discussion with the RN, exam as per RN. Hospital course Patient today denies any shortness of breath or chest pain. No headache nausea vomiting. Blood pressure is getting better. Sepsis Event Evaluation Height, Weight, BMI Height: '" Weight: lbs. oz. kg; 32.44 BMI Method: Exam Exam Patient acknowledged, consented, and participated in this virtual visit which was conducted using real time audio/video Vital Signs Date Time Temp Pulse Resp B/P (MAP) Pulse Ox O2 Delivery O2 Flow Rate FiO2 11/17/21 07:59 Room Air 11/17/21 07:00 70 11/17/21 07:00 35.9 11/17/21 06:00 67 10 165/113 98 Room Air 11/17/21 05:23 36.9 11/17/21 05:00 64 15 153/94 93 Room Air 11/17/21 04:00 Room Air 11/17/21 04:00 66 28 149/101 94 Room Air 11/17/21 03:00 68 18 128/78 94 Room Air 11/17/21 02:00 68 16 127/70 93 Room Air 11/17/21 01:00 75 18 120/77 94 Room Air 11/17/21 01:00 75 11/17/21 00:00 68 26 139/74 91 Room Air 11/16/21 23:08 Room Air 11/16/21 23:00 74 18 139/88 94 Room Air 11/16/21 22:00 76 28 149/103 94 Room Air 11/16/21 21:11 36.3 116 97 21 11/16/21 21:00 81 25 142/101 97 Room Air 11/16/21 20:00 Room Air 11/16/21 20:00 82 12 210/129 96 Room Air 11/16/21 20:00 36.6 11/16/21 19:00 91 30 193/107 98 Room Air 11/16/21 19:00 91 11/16/21 18:57 81 234/167 11/16/21 18:30 96 23 225/129 98 Room Air 11/16/21 18:24 Room Air 11/16/21 18:15 89 21 217/134 98 Room Air 11/16/21 18:00 22 227/137 99 Room Air 11/16/21 17:55 92 11/16/21 17:45 93 31 209/140 95 Room Air 11/16/21 17:45 205/126 99 Room Air 11/16/21 13:42 110 187/115 11/16/21 13:16 111 240/156 11/16/21 12:45 36.3 116 16 246/148 (180) 97 Room Air I & O 11/17/21 07:00 Intake Total 110 ml Output Total 1360 ml Balance -1250 ml Height & Weight Height: '" Weight: lbs. oz. kg; 32.44 BMI Method: General Appearance: No Apparent Distress, WD/WN HEENT: PERRL/EOMI; No Photophobia Neck: Non Tender, Supple Respiratory: Lungs Clear, Normal Breath Sounds, No Accessory Muscle Use, No Respiratory Distress Cardiovascular: Regular Rate, Rhythm, No Edema, No Murmur, Normal Peripheral Pulses Capillary Refill: Less Than 3 Seconds Gastrointestinal: normal bowel sounds, non tender, soft Extremity: Normal Capillary Refill, Non Tender, No Calf Tenderness, No Pedal Edema Neurologic/Psychiatric: Alert, Oriented x3, Normal Mood/Affect; No Facial Droop Skin: Normal Color; No Cool, No Cyanosis; Diaphoresis Lymphatic: No Adenopathy Results Lab Laboratory Tests 11/16/21 12:53 11/17/21 03:48 Assessment/Plan Assessment/Plan 1. Hypertensive emergency now improved 2. Right lateral gaze palsy 3. Uncontrolled diabetes 4. Medication noncompliance. Recommendations 1. Continue losartan 2. Wean hydralazine and nicardipine as tolerated 3. Clonidine orally for cardiology 4. DVT prophylaxis 5.. child protective services specialist consultation for help with medications for changes. 6. CT of the head and a CTA of the brain reports reviewed. Critical Care: Critically Ill Patient Time spent with patient (mins): 15 NEAL SOTELO MD Nov 17, 2021 08:56
[2021-11-17] MEDS ORDERED: ASPIRIN E.C. 81 MG (ECOTRIN) TAB PO SCH (09:00)
[2021-11-17] MEDS ORDERED: LOSARTAN 100 MG (COZAAR) TABLET PO SCH (09:00)
[2021-11-17] MEDS ORDERED: PANTOPRAZOLE 40 MG (PROTONIX) TAB PO SCH (09:00)
--- NOTE | 2021-11-17 09:16 | Diagnostic Imaging Report ---
INDICATION: Hypertensive urgency. The bilateral renal arterial Doppler waveforms were unremarkable as no delay in the systolic upstroke. The renal arterial to aortic systolic velocity ratios bilaterally were normal. There were no duplex or Doppler findings to suggest hemodynamically significant degrees of renal arterial stenosis. Kidneys themselves nonfocal and normal in size, cortical thickness and echotexture were unobstructed and nonacute sonographically and their appearance. The right is 11.3, the left is 11.3 cm. IMPRESSION: Unremarkable bilateral renal arterial Doppler and ultrasound. Unobstructed kidneys appeared unremarkable and there were no findings of hemodynamically significant renal arterial stenosis. Dictated by: Dictated on workstation # [id number]
--- NOTE | 2021-11-17 09:19 | Diagnostic Imaging Report ---
PROCEDURE: US carotid duplex, bilateral. TECHNIQUE: Multiple real-time grayscale images were obtained over the carotid arteries in various projections, bilaterally. Additional spectral analysis and color Doppler duplex images were also obtained. INDICATION: The bilateral peak common, internal and external carotid arterial systolic velocities were not pathologically elevated. No findings of a hemodynamically significant degree of carotid stenosis. There is mild to moderate intimal thickening and scattered calcified plaques throughout the carotid systems with maintenance of normal color Doppler laminar blood flow. No turbulent segment. The vertebral flow is in the antegrade direction bilaterally. IMPRESSION: Mild to moderate degrees of bilateral carotid atherosclerotic plaques, largely calcified, without hemodynamic significant stenosis or segmental occlusion. Parameters based on the consensus panel Bartlett-Scale and Doppler ultrasound criteria published February 2003, Radiology, Volume 229. DOPPLER (peak systolic velocity M/S Right Left CCA .49 .55 ICA Proximal .77 .45 ICA Mid .70 .45 ICA Distal .45 .47 RATIO 1.6 .86 ECA .95 1.1 VERT .26 .52 Dictated by: Dictated on workstation # [id number]
[2021-11-17] MEDS: ENOXAPARIN 40 MG/0.4 ML (LOVENOX) SYR SC SCH (09:40)
[2021-11-17] MEDS: NS IV 1000 ML 1,000 ML IV SCH (11:31)
[2021-11-18] MEDS: SODIUM CHLORIDE IV SCH ×3 (01:54→20:06)
[2021-11-18] MEDS: NICARDIPINE IV SCH ×3 (01:54→20:06)
[2021-11-18] MEDS: NS IV 1000 ML 1,000 ML IV SCH ×3 (03:17→14:54)
[2021-11-18 05:46] LABS: BASOPHILS # (AUTO) 0.1 10^3/uL (0.0-0.1); BASOPHILS % (AUTO) 1 % (0-10); EOSINOPHILS # (AUTO) 0.3 10^3/uL (0.0-0.3); EOSINOPHILS % (AUTO) 4 % (0-10); HEMATOCRIT 41 % (40-54); HEMOGLOBIN 14.1 g/dL (13.3-17.7); LYMPHOCYTES # (AUTO) 2.1 10^3/uL (1.0-4.0); LYMPHOCYTES % (AUTO) 24 % (12-44); MEAN CORPUSCULAR HEMOGLOBIN 29 pg (25-34); MEAN CORPUSCULAR HGB CONC 34 g/dL (32-36); MEAN CORPUSCULAR VOLUME 85 fL (80-99); MEAN PLATELET VOLUME 9.8 fL (9.0-12.2); MONOCYTES # (AUTO) 0.7 10^3/uL (0.0-1.0); MONOCYTES % (AUTO) 8 % (0-12); NEUTROPHILS # (AUTO) 5.6 10^3/uL (1.8-7.8); NEUTROPHILS % (AUTO) 63 % (42-75); PLATELET COUNT 209 10^3/uL (130-400); WHITE BLOOD COUNT 8.8 10^3/uL (4.3-11.0)
[2021-11-18 05:59] LABS: CALCIUM 8.8 MG/DL (8.5-10.1); CREATININE SERUM 0.84 MG/DL (0.60-1.30); MAGNESIUM 1.8 MG/DL (1.6-2.4); POTASSIUM 4.4 MMOL/L (3.6-5.0)
[2021-11-18] MEDS ORDERED: LIDOCAINE 1% INJ 20 ML VIAL ONE (06:42)
[2021-11-18] MEDS ORDERED: HEParin (CATH LAB) 2,000 ML IV ONE (06:42)
--- NOTE | 2021-11-18 07:30 | Progress Note ---
Subjective Subjective Date Seen by Provider: Nov 18, 2021 Time Seen by Provider: 08:15 Monico Rosario is a 46y/o M who is being seen for follow up due to hypertensive emergency. Pt reports that he had some short episodes of SOB last night. Said that he woke up a few times during the night where he felt SOB, states that the episodes were very short and then he would return to normal. Denies being anxious during any of the events. No longer having any episodes of double vision. Denies any CP or palpitations. Has a heart cath scheduled for 9am today. Review of Systems General: No Chills, No Night Sweats HEENT: No Head Aches, No Visual Changes Pulmonary: No Dyspnea, No Cough Cardiovascular: No: Chest Pain, Palpitations Gastrointestinal: No: Nausea, Vomiting, Abdominal Pain Genitourinary: No Dysuria, No Frequency Musculoskeletal: No: neck pain, back pain Neurological: No: Weakness, Numbness All Other Systems Reviewed All Other Systems Reviewed: Yes Objective Exam Vital Signs Vital Signs Date Time Temp Pulse Resp B/P (MAP) Pulse Ox O2 Delivery O2 Flow Rate FiO2 11/18/21 06:00 65 10 163/107 96 Room Air 11/18/21 05:00 62 15 152/96 96 Room Air 11/18/21 04:00 71 20 166/123 97 Room Air 11/18/21 04:00 Room Air 11/18/21 03:30 71 11 148/94 97 Room Air 11/18/21 03:15 35.9 11/18/21 03:07 76 30 188/137 99 Room Air 11/18/21 03:00 72 14 189/148 95 Room Air 11/18/21 02:00 66 17 159/107 96 Room Air 11/18/21 01:00 66 22 151/105 96 Room Air 11/18/21 00:14 64 11/18/21 00:00 63 16 157/105 94 Room Air 11/17/21 23:59 Room Air 11/17/21 23:42 36.9 11/17/21 23:00 65 17 144/91 95 Room Air 11/17/21 22:00 63 15 150/95 94 Room Air 11/17/21 21:00 67 18 159/108 96 Room Air 11/17/21 20:00 Room Air 11/17/21 20:00 68 14 172/125 96 Room Air 11/17/21 19:32 35.9 11/17/21 19:06 68 11/17/21 19:00 66 19 176/119 98 Room Air 11/17/21 18:00 78 31 174/111 96 Room Air 11/17/21 17:00 72 14 163/107 98 Room Air 11/17/21 16:09 36.7 11/17/21 16:00 68 169/110 96 Room Air 11/17/21 16:00 Room Air 11/17/21 15:00 72 146/78 95 Room Air 11/17/21 14:00 72 171/104 95 Room Air 11/17/21 13:00 68 162/109 97 Room Air 11/17/21 12:35 67 11/17/21 12:00 67 155/94 95 Room Air 11/17/21 12:00 Room Air 11/17/21 12:00 36.7 11/17/21 11:00 65 140/93 94 Room Air 11/17/21 10:00 63 176/109 97 Room Air 11/17/21 09:00 64 29 147/95 96 Room Air 11/17/21 08:00 71 10 161/126 97 Room Air 11/17/21 07:59 Room Air I & O 11/18/21 07:00 Intake Total 2380 ml Output Total 1200 ml Balance 1180 ml General Appearance: No Apparent Distress, WD/WN HEENT: PERRL/EOMI; No Photophobia Neck: Non Tender, Supple Respiratory: No Accessory Muscle Use, No Respiratory Distress, Wheezing (expiratory over all lung ramires) Cardiovascular: Regular Rate, Rhythm, No Edema, No Murmur, Normal Peripheral Pulses Gastrointestinal: Normal Bowel Sounds, No Organomegaly, No Pulsatile Mass, Non Tender, Soft Rectal: Deferred Extremity: Normal Capillary Refill, Non Tender, No Calf Tenderness, No Pedal Edema Neurologic/Psychiatric: Alert, Oriented x3, Normal Mood/Affect; No Facial Droop Skin: Normal Color; No Cool, No Cyanosis; Diaphoresis Lymphatic: No Adenopathy Results Lab Laboratory Tests 11/18/21 05:35: White Blood Count 8.8, Red Blood Count 4.84, Hemoglobin 14.1, Hematocrit 41, Mean Corpuscular Volume 85, Mean Corpuscular Hemoglobin 29, Mean Corpuscular Hemoglobin Concent 34, Red Cell Distribution Width 12.9, Platelet Count 209, Mean Platelet Volume 9.8, Immature Granulocyte % (Auto) 0, Neutrophils (%) (Auto) 63, Lymphocytes (%) (Auto) 24, Monocytes (%) (Auto) 8, Eosinophils (%) (Auto) 4, Basophils (%) (Auto) 1, Neutrophils # (Auto) 5.6, Lymphocytes # (Auto) 2.1, Monocytes # (Auto) 0.7, Eosinophils # (Auto) 0.3, Basophils # (Auto) 0.1, Immature Granulocyte # (Auto) 0.0, Sodium Level 138, Potassium Level 4.4, Chloride Level 109H, Carbon Dioxide Level 20L, Anion Gap 9, Blood Urea Nitrogen 15, Creatinine 0.84, Estimat Glomerular Filtration Rate 108, BUN/Creatinine Ratio 18, Glucose Level 92, Calcium Level 8.8, Magnesium Level 1.8 Assessment/Plan Assessment/Plan Admission Dx Hypertensive emergency/crisis Uncontrolled chronic hypertension Medication noncompliance Right lateral gaze palsy Leukocytosis Elevated glucose Assessment and Plan Hypertensive emergency/crisis Uncontrolled chronic hypertension Medication noncompliance Right lateral gaze palsy Leukocytosis Elevated glucose Hypertensive emergency/crisis with Chronically Uncontrolled hypertension - Medication noncompliance due to financial difficulties - will ask social work supervisor for consult/aide - CT findings as below: CTA COMPARISON: CT head without contrast 11/16/2021. FINDINGS: Noncontrast head CT was not repeated. There remains no evidence of a large intracranial hemorrhage or extra-axial fluid collection on the postcon trast imaging. No abnormal intracranial enhancement. No hydrocephalus. No evidence of an acute territorial infarction. CTA demonstrates a conventional aortic arch. Atherosclerotic calcifications result in less than 50% narrowing of the internal carotid artery origin bilaterally. No large vessel occlusion. The basilar, bilateral vertebral, common carotid, internal carotid, anterior cerebral, middle cerebral, and posterior cerebral arteries demonstrate no high-grade narrowing, aneurysm, or dissection. The dural venous sinuses are normally opacified. Moderate mucosal thickening in the maxillary, ethmoid, and sphenoid sinuses. The mastoids are clear. No acute findings in the neck soft tissues. The lung apices are unremarkable. IMPRESSION: 1. No large vessel occlusion. No high-grade narrowing, aneurysm, or dissection involving the major arteries in the head and neck. 2. Atherosclerotic disease results in less than 50% narrowing of the bilateral internal carotid artery origins. - Carotid US, Renal US, ECHO and consult to Dr. Eugene done yesterday - renal artery U/S showed, according to radiology, unremarkable bilateral renal arterial Doppler and ultrasound. Unobstructed kidneys appeared unremarkable and there were no findings of hemodynamically significant renal arterial stenosis. - carotid U/S showed, according to radiology, mild to moderate degrees of bilateral carotid atherosclerotic plaques, largely calcified, without hemodynamic significant stenosis or segmental occlusion. - echo showed, according to report, EF of 30-35% w/ severe asymmetry of posterior wall of left ventricle - nicardipine drip has been stopped, currently on losartan, metoprolol, clonidine, and hydralazine - heart cath scheduled for 9am w/ Dr. Eugene - he is scheduled to be fitted for a Life vest according to other notes - followed by cardiology and eICU Right lateral gaze palsy - per [facility] - should improve with resolution of blood pressure crisis, monitor symptoms - has improved since admission, will continue to monitor Leukocytosis (improved) - 8.8 today - improved from yesterday at 9.5, down from 12.3 on 11/16 Elevated glucose - hgba1c of 5.5 dvt prophylaxis with scd's lovenox gi prophylaxis with ppi therapy Admission Dx Hypertensive emergency/crisis Uncontrolled chronic hypertension Medication noncompliance Right lateral gaze palsy Leukocytosis Elevated glucose Clinical Quality Measures Admission Status Admission Dx Hypertensive emergency/crisis Uncontrolled chronic hypertension Medication noncompliance Right lateral gaze palsy Leukocytosis Elevated glucose Stroke: Date of last known well: Nov 16, 2021 Time of last known well: 0030 Symptoms onset unknown: Yes Supervisory-Addendum Brief Verification & Attestation Participated in pt care: history, MDM, physical Personally performed: exam, history, MDM, supervision of care Care discussed with: Medical Student Procedures: n/a Results interpretation: Verified all documentation Agree with excellent student note as documented. Pt was evaluated today in his ICU room with his and his mom in the room. The patient has a decreased ejection fraction at 30%, grossly elevated blood pressure (on admission) - now improved but not as well controlled as needed. Dr. Eugene to take pt to heart catheterization today. We discussed the need for the patient to stop smoking, engage in low sodium diet (2 grams or less), and will need close follow up in the clinic and with cardiology. His MRI was cancelled yesterday due to his renal function with plan for heart cath today which supersedes the MRI in importance for his health. His right lateral gaze palsy is improved. We can schedule his MRI as an outpatient. Pt aware of his illness, and vocalized understanding of the gravity of his illness/disease process. JIMMY ZHOU Nov 18, 2021 07:30 MISSAEL BACK MD Nov 18, 2021 09:39
--- NOTE | 2021-11-18 08:21 | Conscious Sedation/ASA ---
Conscious Sedation Pre-Proced Time 08:21 ASA Score 3 For ASA 3 and 4: Consider anesthesia and medical clearance. Also, for patients with a history of failed moderate sedation consider anesthesia. Airway Lungs Heart ASA score ASA 1: a normal healthy patient ASA 2: a patient with a mild systemic disease (mid diabetes, controlled hypertension, obesity x ASA 3: a patient with a severe systemic disease that limits activity (angina, COPD, prior Myocardial infarction) ASA 4: a patient with an incapacitating disease that is a constant threat to life (CHF, renal failure) ASA 5: a moribund patient not expected to survive 24 hrs. (ruptured aneurysm) ASA 6: a declared brain- patient whose organs are being harvested. For emergent operations, add the letter E after the classification Mallampati Classification Grade 3 Sedation Plan Analgesia, Amnesia, Plan communicated to team members, Discussed options with patient/fam, Discussed risks with patient/fam The patient is an appropriate candidate to undergo the planned procedure, sedation, and anesthesia. The patient immediately re-assessed prior to indication. BASHIR HOWARD MD Nov 18, 2021 08:21
[2021-11-18] MEDS ORDERED: VERAPAMIL 5 MG/2 ML (CALAN) VIAL IV ONE (08:23)
[2021-11-18] MEDS ORDERED: MIDAZOLAM 5 MG/5 ML (VERSED) VIAL ONE (08:23)
[2021-11-18] MEDS ORDERED: HEParin 1000 UNIT/ML (10ML VIAL) FOR BOLUS ONE (08:23)
[2021-11-18] MEDS ORDERED: fentaNYL INJ 100 MCG/2 ML AMP ONE (08:23)
[2021-11-18] MEDS ORDERED: NITRO DRIP 25000 MCG/D5W 250 ML IV ONE (08:23)
[2021-11-18] MEDS: ENOXAPARIN 40 MG/0.4 ML (LOVENOX) SYR SC SCH (10:00)
[2021-11-18] MEDS ORDERED: ASPIRIN 325 MG (5 GR) TABLET ONE (10:06)
[2021-11-18] MEDS ORDERED: CLOPIDOGREL 300 MG (PLAVIX) TABLET PO ONE (10:07)
[2021-11-18] MEDS ORDERED: PATIENT MAY USE OWN MEDS, ALL PO SCH (10:15)
--- NOTE | 2021-11-18 10:20 | Cardiac Cath Report ---
Cardiac Cath Report Physician (s)/D[employer]wall Finisher (s) Physician BASHIR HOWARD MD Pre-Procedure Diagnosis Pre-Procedure Diagnosis: Coronary artery disease, congestive heart failure Post-Procedure Note Procedure Start Date: Nov 18, 2021 Name of Procedure: Left heart catheterization Stenting to the circumflex artery Findings/Procedure Note PROCEDURE NOTE: 46 years old gentleman admitted with hypertensive emergency, has severe cardiomyopathy. Scheduled for cardiac catheterization possible PTCA. After explaining the procedure to the patient, all pros and cons were explained, all questions were answered. The patient signed the consent and then he was placed on the cardiac catheterization laboratory. Groin was prepped SL fashion local anesthesia was used. Sheath placed in the right radial artery, [place] catheter was advanced to the left ventricular cavity, pressure was measured, pullback LV V to aorta was done, no left ventriculogram was done. Engage the right and left coronary system, angiogram was done. Patient was noted to have severe stenosis in the distal circumflex artery, EBU 4 guide was advanced then I used BMW wire without success and advanced into the proper circumflex artery, I parked it in the obtuse marginal artery then advanced whisper medium support to the distal circumflex artery and primary stenting using yevgeniy point stent 2.25 x 15 mm deployed to its nominal size, angiogram showed excellent results. At the end of the procedure the sheath was removed. Vascular band was used FINDINGS: Hemodynamics LV 147/24, end-diastolic pressure of 24 Aorta 157/110 mean of 131 ANATOMY: Left Main is free of obstructive disease Left Anterior Descending is moderate in size with 40 to 50% stenosis in the midportion Left Circumflex is moderate in size proximally has 40 to 50% stenosis, at the proper circumflex artery there is an area of 80% stenosis with successful primary stenting using yevgeniy point stent 2.25 x 15 mm with excellent results, the distal portion of that circumflex artery has 80% stenosis very small artery not amendable to intervention Right Coronary Artery is dominant artery with mild disease nonobstructive disease LV Gram was not done, pressure was measured, known to have ejection fraction 30% by echo CONCLUSION: 1. 80% stenosis in the proper circumflex artery with successful primary stenting using yevgeniy point stent 2.25 x 15 mm deployed with excellent results, the distal portion of the circumflex artery has 80% stenosis, very small artery, treated medically, the proximal portion of the circumflex artery has 40 to 50% stenosis nonobstructive disease. 2. 40 to 50% stenosis in the mid LAD, mild disease in the right coronary artery 3. Severe cardiomyopathy with ejection fraction 30% known by echo. No left karoline triculogram was done, elevated left ventricular end-diastolic pressure DISCUSSION AND RECOMMENDATION: Patient was started on aspirin and Plavix, will continue maximizing medical therapy Anesthesia Type: Conscious Sedation Estimated blood loss (mL): 30 ml Contrast Amount: 130 ml Total Radiation Dose: 1788 mGy Post-Procedure Diagnosis Post-operative diagnosis: Congestive heart failure nonischemic cardiomyopathy Coronary artery disease Malignant hypertension Hyperlipidemia BASHIR HOWARD MD Nov 18, 2021 10:20
--- NOTE | 2021-11-18 10:29 | Cardiology Progress Note ---
Subjective Date Seen by Provider: Nov 18, 2021 Time Seen by Provider: 10:26 Subjective/Events-last exam Patient was seen at bedside, feeling better. No new complaint. No chest pain. Review of Systems General: No Chills, No Night Sweats; Fatigue; No Malaise, No Appetite, No Other HEENT: No Head Aches, No Visual Changes, No Eye Pain, No Ear Pain, No Dysphasia, No Sinus Congestion, No Post Nasal Drip, No Sore Throat, No Other Pulmonary: No Dyspnea, No Cough, No Pleuritic Chest Pain, No Other Cardiovascular: No: Chest Pain, Palpitations, Orthopnea, Paroxysmal Noc. Dyspnea, Edema, Lt Headedness, Other Objective-Cardiology Exam Last Set of Vital Signs Vital Signs 11/16/21 11/18/21 11/18/21 21:11 07:42 08:00 Temp 36.5 Pulse 73 Resp 16 B/P (MAP) 161/116 Pulse Ox 97 O2 Delivery Room Air FiO2 21 I&O Intake and Output 11/18/21 00:00 Intake Total 2480 ml Output Total 1490 ml Balance 990 ml Intake Oral 1480 ml IV Total 1000 ml Output Urine Total 1490 ml Stool Total 0 ml General: Alert, Oriented X3, Cooperative HEENT: Atraumatic, PERRLA Neck: Supple, No JVD, No Thyromegaly Lungs: Clear to Auscultation, Normal Air Movement Heart: Regular Rate, Normal S1, Normal S2, Other (S3 is present) Abdomen: Normal Bowel Sounds, Soft, No Tenderness, No Hepatosplenomegaly, No Masses Extremities: No Clubbing, No Cyanosis, No Edema, Normal Pulses, No Tenderness/Swelling Skin: No Rashes, No Breakdown, No Significant Lesion Neuro: Normal Gait, Normal Speech, Strength at 5/5 X4 Ext, Normal Tone, Sensation Intact Psych/Mental Status: Mental Status NL, Mood NL Results Lab Laboratory Tests 11/18/21 05:35 A/P-Cardiology Admission Diagnosis Hypertensive emergency Headache Double vision Hyperlipidemia Assessment/Plan Hypertensive emergency, better control at this time. Continue on Toprol-XL 100 mg daily and I am switching losartan to Entresto and evaluate tolerance and response Congestive heart failure, acute left ventricular systolic dysfunction, combined ischemic and nonischemic cardiomyopathy Ejection fraction 30 to 35% Started on Toprol and Entresto. Planning to place a LifeVest. Coronary artery disease, cardiac catheterization carried out on November 18, 2021 showing 80% stenosis in the proper circumflex artery, successful primary stent ing using yevgeniy point stent 2.25 x 15 mm. The distal circumflex artery has 80% stenosis, very small artery, proximal circumflex artery has 40 to 50% stenosis, mid LAD has 40 to 50% stenosis, mild disease in the right coronary artery. Elevated left ventricular end-diastolic pressure Started on aspirin and Plavix. Headache with double vision, could be secondary to hypertensive emergency, Work-up for stroke has been negative so far. Continue to monitor closely. Tobaccoism, educated on smoking cessation. Hyperlipidemia, I will evaluate full lipid profile Obesity, BMI 32 Family history of atherosclerosis I am planning for possible discharge tomorrow, arranging for LifeVest BASHIR HOWARD MD Nov 18, 2021 10:29
[2021-11-18] MEDS: SACUBITRIL/VALSARTAN 24/26 MG (ENTRESTO) TABLET PO SCH ×2 (11:20→20:40)
[2021-11-18] MEDS: meTOprolol SUCCINATE 100 MG (TOPROL XL) TAB PO SCH (11:20)
[2021-11-18] MEDS: cloNIDine 0.1 MG (CATAPRES) TAB PO SCH ×2 (11:20→20:40)
[2021-11-19 04:57] LABS: HEMATOCRIT 43 % (40-54); HEMOGLOBIN 14.4 g/dL (13.3-17.7); MEAN CORPUSCULAR HEMOGLOBIN 29 pg (25-34); MEAN CORPUSCULAR HGB CONC 34 g/dL (32-36); MEAN CORPUSCULAR VOLUME 85 fL (80-99); MEAN PLATELET VOLUME 10.6 fL (9.0-12.2); PLATELET COUNT 232 10^3/uL (130-400); WHITE BLOOD COUNT 9.5 10^3/uL (4.3-11.0)
[2021-11-19 05:14] LABS: POTASSIUM 4.2 MMOL/L (3.6-5.0)
[2021-11-19 05:20] LABS: CREATININE SERUM 0.8 MG/DL (0.60-1.30)
[2021-11-19] MEDS: NS IV 1000 ML 1,000 ML IV SCH (06:32)
[2021-11-19] MEDS: NICARDIPINE IV SCH (06:33)
[2021-11-19] MEDS: SODIUM CHLORIDE IV SCH (06:33)
[2021-11-19] MEDS: meTOprolol SUCCINATE 100 MG (TOPROL XL) TAB PO SCH (08:11)
[2021-11-19] MEDS: cloNIDine 0.1 MG (CATAPRES) TAB PO SCH (08:11)
[2021-11-19] MEDS: ENOXAPARIN 40 MG/0.4 ML (LOVENOX) SYR SC SCH (08:11)
[2021-11-19] MEDS: SACUBITRIL/VALSARTAN 24/26 MG (ENTRESTO) TABLET PO SCH (08:11)
[2021-11-19] MEDS ORDERED: CLOPIDOGREL 75 MG (PLAVIX) TABLET PO SCH (09:00)
[2021-11-19] MEDS ORDERED: ASPIRIN E.C. 81 MG (ECOTRIN) TAB PO SCH (09:00)
[2021-11-19] MEDS ORDERED: PANTOPRAZOLE 40 MG (PROTONIX) TAB PO SCH (09:00)
--- NOTE | 2021-11-19 10:10 | Discharge Summary ---
Diagnosis/Chief Complaint Date of Admission Nov 16, 2021 at 16:35 Date of Discharge Primary Care Mary Grimes MD Discharge Summary Discharge Physical Exam Allergies: Coded Allergies: No Known Drug Allergies (Unverified , 11/16/21) Vitals & I&Os Vital Signs Date Time Temp Pulse Resp B/P (MAP) Pulse Ox O2 Delivery O2 Flow Rate FiO2 11/19/21 10:00 72 18 164/109 98 Room Air 11/19/21 07:33 36.7 11/16/21 21:11 21 General Appearance: No Apparent Distress, Obese Cardiovascular: Regular Rate, Rhythm, No Murmur Neurologic/Psychiatric: Alert, Oriented x3 Hospital Course Patient was admitted to the hospital secondary to hypertensive emergency. He was seen by cardiology and given acutely decompensated congestive heart failure with an EF of 30% he was taken to the [facility] evaluation. He was found to have ischemic cardiomyopathy and stenting was done to the circumflex artery. A LifeVest was arranged as well. He was discharged in stable improved condition to follow-up with Dr. Grimes and Dr. Eugene. Labs (last 24 hrs) Laboratory Tests 11/19/21 04:10: White Blood Count 9.5, Red Blood Count 5.06, Hemoglobin 14.4, Hematocrit 43, Mean Corpuscular Volume 85, Mean Corpuscular Hemoglobin 29, Mean Corpuscular Hemoglobin Concent 34, Red Cell Distribution Width 12.6, Platelet Count 232, Mean Platelet Volume 10.6, Sodium Level 138, Potassium Level 4.2, Chloride Level 107, Carbon Dioxide Level 21, Anion Gap 10, Blood Urea Nitrogen 9, Creatinine 0.80, Estimat Glomerular Filtration Rate 109, BUN/Creatinine Ratio 11, Glucose Level 86, Calcium Level 9.0 Patient resulted labs reviewed. Pending Labs Laboratory Tests 11/19/21 04:10: White Blood Count 9.5, Red Blood Count 5.06, Hemoglobin 14.4, Hematocrit 43, Mean Corpuscular Volume 85, Mean Corpuscular Hemoglobin 29, Mean Corpuscular Hemoglobin Concent 34, Red Cell Distribution Width 12.6, Platelet Count 232, Mean Platelet Volume 10.6, Sodium Level 138, Potassium Level 4.2, Chloride Level 107, Carbon Dioxide Level 21, Anion Gap 10, Blood Urea Nitrogen 9, Creatinine 0.80, Estimat Glomerular Filtration Rate 109, BUN/Creatinine Ratio 11, Glucose Level 86, Calcium Level 9.0 Discussion & Recommendations Discharge Planning: >30 minutes discharge planning Discharge Home Medications: Active Scripts Active No Active Prescriptions or Reported Medications Instructions to patient/family Please see electronic discharge instructions given to patient. Clinical Quality Measures Stroke: Date of last known well: Nov 16, 2021 Time of last known well: 003 Symptoms onset unknown: Yes AARON ALVARADO MD Nov 19, 2021 10:10
[2021-11-19] MEDS ORDERED: amLODIPine 5 MG (NORVASC) TAB PO SCH (10:15)
--- NOTE | 2021-11-19 12:22 | Cardiology Progress Note ---
Subjective Date Seen by Provider: Nov 19, 2021 Time Seen by Provider: 12:21 Subjective/Events-last exam Patient was seen at bedside, sitting comfortably Feeling better. No new complaint Review of Systems General: No Chills, No Night Sweats, No Fatigue, No Malaise, No Appetite, No Other HEENT: No Head Aches, No Visual Changes, No Eye Pain, No Ear Pain, No Dysphasia, No Sinus Congestion, No Post Nasal Drip, No Sore Throat, No Other Pulmonary: No Dyspnea, No Cough, No Pleuritic Chest Pain, No Other Cardiovascular: No: Chest Pain, Palpitations, Orthopnea, Paroxysmal Noc. Dyspnea, Edema, Lt Headedness, Other Objective-Cardiology Exam Last Set of Vital Signs Vital Signs 11/16/21 11/19/21 11/19/21 11/19/21 21:11 11:00 11:32 12:00 Temp 36.6 Pulse 74 Resp 19 B/P (MAP) 154/102 Pulse Ox 97 O2 Delivery Room Air FiO2 21 I&O Intake and Output 11/19/21 00:00 Intake Total 1670 ml Output Total 2425 ml Balance -755 ml Intake Oral 1670 ml Output Urine Total 2425 ml General: Alert, Oriented X3, Cooperative HEENT: Atraumatic, PERRLA Neck: Supple, No JVD, No Thyromegaly Lungs: Clear to Auscultation, Normal Air Movement Heart: Regular Rate, Normal S1, Normal S2, Other (S3 is present) Abdomen: Normal Bowel Sounds, Soft, No Tenderness, No Hepatosplenomegaly, No Masses Extremities: No Clubbing, No Cyanosis, No Edema, Normal Pulses, No Tenderness/Swelling Skin: No Rashes, No Breakdown, No Significant Lesion Neuro: Normal Gait, Normal Speech, Strength at 5/5 X4 Ext, Normal Tone, Sensation Intact Psych/Mental Status: Mental Status NL, Mood NL Results Lab Laboratory Tests 11/19/21 04:10 A/P-Cardiology Admission Diagnosis Hypertensive emergency Headache Double vision Hyperlipidemia Assessment/Plan Hypertensive emergency, better control at this time. Continue on Toprol-XL 100 mg daily, losartan. I will add amlodipine and evaluate tolerance and response Congestive heart failure, acute left ventricular systolic dysfunction, combined ischemic and nonischemic cardiomyopathy Ejection fraction 30 to 35% Started on Toprol and Entresto. Being fitted for LifeVest today Coronary artery disease, cardiac catheterization carried out on November 18, 2021 showing 80% stenosis in the proper circumflex artery, successful primary stenting using yevgeniy point stent 2.25 x 15 mm. The distal circumflex artery has 80% stenosis, very small artery, proximal circumflex artery has 40 to 50% stenosis, mid LAD has 40 to 50% stenosis, mild disease in the right coronary artery. Elevated left ventricular end-diastolic pressure Started on aspirin and Plavix. Headache with double vision, could be secondary to hypertensive emergency, Work-up for stroke has been negative so far. Continue to monitor closely. Tobaccoism, educated on smoking cessation. Hyperlipidemia, I will evaluate full lipid profile Obesity, BMI 32 Family history of atherosclerosis Will monitor and consider discharge in the afternoon if his blood pressure is better BASHIR HOWARD MD Nov 19, 2021 12:22
--- NOTE | 2021-11-19 12:36 | Discharge Inst-Simple/Standard ---
Discharge Inst-Standard Discharge Medications New, Converted or Re-Newed RX: Transmitted to Pharmacy Patient Instructions/Follow Up Plan of Care/Instructions/FU: Please continue to take your medications as written. Please follow up with your primary care doctor to follow up this hospital stay. Activity as Tolerated: Yes Discharge Diet: Cardiac Diet Return to The Hospital For: Chest pain, shortness of breath, fever, weakness, if you feel you are getting worse. AARON ALVARADO MD Nov 19, 2021 12:36
[2021-11-19] MEDS ORDERED: MTP100TCR PO (14:31)
[2021-11-19] MEDS ORDERED: PANT40TA52 PO (14:31)
[2021-11-19] MEDS ORDERED: ATOR20TA66 PO (14:31)
[2021-11-19] MEDS ORDERED: AMLO-250 PO (14:31)
[2021-11-19] MEDS ORDERED: CLN.1T PO (14:31)
[2021-11-19] MEDS ORDERED: ASPI-1238 PO (14:31)
[2021-11-19] MEDS ORDERED: SACU1TAB2 PO (14:31)
[2021-11-19] MEDS ORDERED: CLOP75TA28 PO (14:31)
[2021-11-19] MEDS ORDERED: HYDR25TA4 PO (14:35)
== END 2021-11-19 15:00 | disposition home or self-care (01) | DRG 246 ==
LOC: EDUNIT# 12:33 → ER 12:35 → ICU 16:35
PROVIDERS: ADMIT Family Medicine; ATTEND Family Medicine
PROC: 027034Z Dilation of Coronary Artery, One Artery with Drug-eluting Intraluminal Device, Percutaneous Approach (ICD-10-PCS; principal; 2021-11-16)
PROC: 4A023N7 Measurement of Cardiac Sampling and Pressure, Left Heart, Percutaneous Approach (ICD-10-PCS; 2021-11-16)
PROC: B2111ZZ Fluoroscopy of Multiple Coronary Arteries using Low Osmolar Contrast (ICD-10-PCS; 2021-11-16)
DX: I16.1 Hypertensive emergency (principal); I50.23 Acute on chronic systolic (congestive) heart failure; I42.8 Other cardiomyopathies; H53.2 Diplopia; E78.5 Hyperlipidemia, unspecified; I25.5 Ischemic cardiomyopathy; I25.10 Atherosclerotic heart disease of native coronary artery without angina pectoris; F17.210 Nicotine dependence, cigarettes, uncomplicated; E66.9 Obesity, unspecified; Z68.32 Body mass index [BMI] 32.0-32.9, adult; Z82.49 Family history of ischemic heart disease and other diseases of the circulatory system; I11.0 Hypertensive heart disease with heart failure; Z91.14 Patient's other noncompliance with medication regimen; G83.9 Paralytic syndrome, unspecified; D72.829 Elevated white blood cell count, unspecified
CPT/HCPCS: 36415; 70450; 70496; 70498; 71045; 76770; 80048; 80053; 80061; 81000; 82465; 83036; 83735; 84585; 85025; 85027; 85610; 85730; 93005; 93306; 93458; 93880; 93975

== ENCOUNTER 2021-11-22 08:52 | Day surgery (SDC) | payer BC ==
[~2021-11-22] VITALS: Ht 172.7 cm; Wt 98.0 kg
[~2021-11-22 08:52] MED LIST: AMLO-250 PO; ASPI-1238 PO; ATOR20TA66 PO; CLN.1T PO; CLOP75TA28 PO; HYDR25TA4 PO; MTP100TCR PO; PANT40TA52 PO; SACU1TAB2 PO
--- NOTE | 2021-11-22 09:16 | Diagnostic Imaging Report ---
INDICATION: Chest pain Frontal chest obtained at 9:02 a.m. and compared to 11/16/2021. Heart is mildly enlarged. There is no focal infiltrate or pneumothorax or pleural fluid. IMPRESSION: Mild cardiomegaly with no acute process in the chest. Dictated by: Dictated on workstation # [id number]
[2021-11-22 09:18] LABS: BASOPHILS # (AUTO) 0.1 10^3/uL (0.0-0.1); BASOPHILS % (AUTO) 1 % (0-10); EOSINOPHILS # (AUTO) 0.4 10^3/uL (0.0-0.3); EOSINOPHILS % (AUTO) 3 % (0-10); HEMATOCRIT 47 % (40-54); HEMOGLOBIN 16.2 g/dL (13.3-17.7); LYMPHOCYTES # (AUTO) 2.4 10^3/uL (1.0-4.0); LYMPHOCYTES % (AUTO) 18 % (12-44); MEAN CORPUSCULAR HEMOGLOBIN 29 pg (25-34); MEAN CORPUSCULAR HGB CONC 35 g/dL (32-36); MEAN CORPUSCULAR VOLUME 83 fL (80-99); MEAN PLATELET VOLUME 10.4 fL (9.0-12.2); MONOCYTES # (AUTO) 1.3 10^3/uL (0.0-1.0); MONOCYTES % (AUTO) 10 % (0-12); NEUTROPHILS # (AUTO) 8.9 10^3/uL (1.8-7.8); NEUTROPHILS % (AUTO) 67 % (42-75); PLATELET COUNT 322 10^3/uL (130-400); WHITE BLOOD COUNT 13.3 10^3/uL (4.3-11.0)
[2021-11-22] MEDS ORDERED: morphine INJ 10 MG/ML 1ML (SYR OR VIAL) IVP STA (09:23)
[2021-11-22 09:29] LABS: PROTHROMBIN TIME PATIENT 13.2 SEC (12.2-14.7)
--- NOTE | 2021-11-22 09:29 | ED Chest Pain ---
General Chief Complaint: Chest Pain Stated Complaint: CHEST PAIN Source: patient, family () Exam Limitations: no limitations History of Present Illness Date Seen by Provider: Nov 22, 2021 Time Seen by Provider: 09:12 Initial Comments Patient is a 46-year-old male recently seen by me on November 16 admitted for hypertensive emergency discharged within the last couple of days after heart cath and PTCA. Diagnosed with ischemic cardiomyopathy and fitted for LifeVest. Dr. Eugene had indicated the patient could return to work today. He got up at about 6 AM and was at work by about 715 and 730. Shortly after arriving at work he developed substernal chest pressure/pain radiating to his left arm. Nausea vomiting and profound diaphoresis. He has not taken anything for the pain. He states that the pain is getting worse and seems to be spreading across his chest. States that he has been compliant with his medications. He is currently wearing a LifeVest. He took his morning medications. No other complaints of illness. 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 NTG SL SOFTWARE PROGRAMMER: No Associated Symptoms: back pain, diaphoresis, nausea/vomiting, shortness of breath Allergies and Home Medications Allergies Coded Allergies: No Known Drug Allergies (Unverified , 11/16/21) Patient Home Medication List Home Medication List Reviewed: Yes Amlodipine Besylate (Amlodipine Besylate) 5 Mg Tablet, 5 MG PO DAILY Prescribed by: BASHIR EUGENE on 11/19/21 143 Last Action: Continued Aspirin (Aspirin EC) 81 Mg Tablet.dr, 81 MG PO DAILY Prescribed by: BASHIR EUGENE on 11/19/21 143 Atorvastatin Calcium (Atorvastatin Calcium) 20 Mg Tablet, 20 MG PO HS Prescribed by: BASHIR EUGENE on 11/19/21 143 Last Action: Continued Clonidine HCl (Clonidine HCl) 0.1 Mg Tablet, 0.1 MG PO BID Prescribed by: BASHIR EUGENE on 11/19/21 143 Last Action: Continued Clopidogrel Bisulfate (Clopidogrel) 75 Mg Tablet, 75 MG PO DAILY Prescribed by: BASHIR EUGENE on 11/19/21 143 Hydrochlorothiazide (Hydrochlorothiazide) 25 Mg Tablet, 25 MG PO DAILY Prescribed by: BASHIR EUGENE on 11/19/21 143 Last Action: Continued Metoprolol Succinate (Metoprolol Succinate) 100 Mg Tab.er.24h, 100 MG PO DAILY Prescribed by: BAHSIR EUGENE on 11/19/211430 Last Action: Continued Pantoprazole Sodium (Pantoprazole Sodium) 40 Mg Tablet.dr, 40 MG PO DAILY Prescribed by: BASHIR EUGENE on 11/19/211430 Last Action: Continued Sacubitril/Valsartan (Entresto 24 mg-26 mg Tablet) 24 Mg-26 Mg Tablet, 1 TAB PO BID Prescribed by: BASHIR EUGENE on 11/19/211430 Last Action: Continued Review of Systems Review of Systems Constitutional: see HPI, diaphoresis EENTM: No Symptoms Reported Respiratory: Shortness of Air Cardiovascular: Chest Pain Gastrointestinal: Nausea, Vomiting Genitourinary: No Symptoms Reported Musculoskeletal: no symptoms reported Skin: other (sweating) Psychiatric/Neurological: No Symptoms Reported All Other Systems Reviewed Negative Unless Noted: Yes Past Xzortzo-Rjjotm-Yhrqot Hx Patient Social History Tobacco Use?: Yes Tobacco type used: Cigarettes Smoking Status: Former Smoker Substance use?: No Alcohol Use?: Yes Alcohol type: Hard Liquor Alcohol Frequency: Couple times a week Pt feels they are or have been: Unable to obtain Immunizations Up To Date Influenza Vaccine Up-to-Date: No; Not Current First/Initial COVID19 Vaccinat: UNKNOWN DATE Second COVID19 Vaccination Jose Angel: UNKNOWN DATE Third COVID19 Vaccination Date: UNKNOWN DATE Seasonal Allergies Seasonal Allergies: No Past Medical History Currently Using CPAP: No Currently Using BIPAP: No Hypertension Sexually Transmitted Disease: No HIV/AIDS: No Loss of Vision: Denies Did You Recieve Any Treatments: No Blood Disorders: No Adverse Reaction/Blood Tranf: No Family Medical History Heart Disease, Hypertension Physical Exam Vital Signs Vital Signs - First Documented 11/22/21 09:10 Temp 36.2 Pulse 54 Resp 12 B/P (MAP) 138/90 (106) Pulse Ox 99 O2 Delivery Room Air Capillary Refill : Height, Weight, BMI Height: '" Weight: lbs. oz. kg; 33.86 BMI Method: General Appearance: Anxious, Moderate Distress Neck: Normal Inspection Respiratory: Lungs Clear, Normal Breath Sounds, No Accessory Muscle Use, No Respiratory Distress Cardiovascular: Regular Rate, Rhythm, Bradycardia (53) Gastrointestinal: Non Tender, Soft Extremity: Normal Inspection, Normal Range of Motion, No Pedal Edema Neurologic/Psychiatric: Alert, Oriented x3, No Motor/Sensory Deficits, Normal Mood/Affect, pot sander II-XII Norm as Tested Skin: Diaphoresis, Pallor Progress/Results/Core Measures Results/Orders Lab Results Laboratory Tests Test 11/22/21 09:03 Range/Units White Blood Count 13.3 H 4.3-11.0 10^3/uL Red Blood Count 5.63 H 4.30-5.52 10^6/uL Hemoglobin 16.2 13.3-17.7 g/dL Hematocrit 47 40-54 % Mean Corpuscular Volume 83 80-99 fL Mean Corpuscular Hemoglobin 29 25-34 pg Mean Corpuscular Hemoglobin Concent 35 32-36 g/dL Red Cell Distribution Width 12.9 10.0-14.5 % Platelet Count 322 130-400 10^3/uL Mean Platelet Volume 10.4 9.0-12.2 fL Immature Granulocyte % (Auto) 0 % Neutrophils (%) (Auto) 67 42-75 % Lymphocytes (%) (Auto) 18 12-44 % Monocytes (%) (Auto) 10 0-12 % Eosinophils (%) (Auto) 3 0-10 % Basophils (%) (Auto) 1 0-10 % Neutrophils # (Auto) 8.9 H 1.8-7.8 10^3/uL Lymphocytes # (Auto) 2.4 1.0-4.0 10^3/uL Monocytes # (Auto) 1.3 H 0.0-1.0 10^3/uL Eosinophils # (Auto) 0.4 H 0.0-0.3 10^3/uL Basophils # (Auto) 0.1 0.0-0.1 10^3/uL Immature Granulocyte # (Auto) 0.0 0.0-0.1 10^3/uL Prothrombin Time 13.2 12.2-14.7 SEC INR Comment 1.0 0.8-1.4 Activated Partial Thromboplast Time 28 24-35 SEC Sodium Level 138 135-145 MMOL/L Potassium Level 4.0 3.6-5.0 MMOL/L Chloride Level 102 98-107 MMOL/L Carbon Dioxide Level 21 21-32 MMOL/L Anion Gap 15 H 5-14 MMOL/L Blood Urea Nitrogen 21 H 7-18 MG/DL Creatinine 1.45 H 0.60-1.30 MG/DL Estimat Glomerular Filtration Rate 59 BUN/Creatinine Ratio 14 Glucose Level 123 H 70-105 MG/DL Calcium Level 10.0 8.5-10.1 MG/DL Corrected Calcium 8.5-10.1 MG/DL Magnesium Level 1.9 1.6-2.4 MG/DL Total Bilirubin 0.7 0.1-1.0 MG/DL Aspartate Amino Transf (AST/SGOT) 36 H 5-34 U/L Alanine Aminotransferase (ALT/SGPT) 59 H 0-55 U/L Alkaline Phosphatase 111 40-136 U/L Myoglobin 42.2 10.0-92.0 NG/ML Troponin I 0.088 H <0.028 NG/ML Total Protein 7.5 6.4-8.2 GM/DL Albumin 4.7 H 3.2-4.5 GM/DL My Orders Orders - MELINDA LYNCH MD Cbc With Automated Diff (11/22/21 08:58) Magnesium (11/22/21 08:58) Chest 1 View, Ap/Pa Only (11/22/21 08:58) Ekg Tracing (11/22/21 08:58) Comprehensive Metabolic Panel (11/22/21 08:58) Myoglobin Serum (11/22/21 08:58) Protime With Inr (11/22/21 08:58) Partial Thromboplastin Time (11/22/21 08:58) O2 (11/22/21 08:58) Monitor-Rhythm Ecg Trace Only (11/22/21 08:58) Lipid Panel (11/23/21 06:00) Ed Iv/Invasive Line Start (11/22/21 08:58) Troponin I [place] (11/22/21 08:58) Ondansetron Injection (Zofran Injectio (11/22/21 09:30) Morphine Injection (Morphine Injection (11/22/21 09:23) Nitroglycerin 0.4 Mg Btl 25's (Nitrostat (11/22/21 09:37) Ns Iv 1000 Ml (Sodium Chloride 0.9%) (11/22/21 09:45) Ns Iv 1000 Ml (Sodium Chloride 0.9%) (11/22/21 10:00) Heparin Injection (Heparin Injection) (11/22/21 10:15) Medications Given in ED Current Medications Medications Dose Ordered Sig/Cristel Route Start Time Stop Time Status Last Admin Dose Admin Ondansetron HCl 4 mg ONCE ONCE IVP 11/22/21 09:30 11/22/21 09:31 DC 11/22/21 09:33 4 MG Vital Signs/I&O 11/22/21 09:10 Temp 36.2 Pulse 54 Resp 12 B/P (MAP) 138/90 (106) Pulse Ox 99 O2 Delivery Room Air Progress Progress Note #1: Time: 09:28 Progress Note Noted on my assessment of the patient on telemetry the patient had ST segment depressions so had a repeat EKG done at 0 922. Please see note under EKG interpretations Call made to Dr. Eugene at this time for consultation. He is reviewing the EKGs and will call me back. Progress Note #2: Time: 09:50 Progress Note For sublingual nitro given at 0 944. No real change in his chest pain/discomfort. The morphine actually did not help him much at all either. His pressures up to 128 systolic. Repeating nitro at this time. 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 Q waves lead III. No ST segment elevation or depression. No ectopy EKG : EKG Time: :22 Rate: 53 Rhythm: S.Darvin Intervals SC interval 136 QRS 95 QTc 4 oh Comment Inverted T waves across V3, 4, 5 and 6. Q waves in lead V1 and V2. Sinus rhythm also T wave inversion noted in leads II and nonspecific changes in 3 and aVF, no active Diagnostic Imaging Diagonstic Imaging: Xray Plain Films/CT/US/NM/MRI: chest Comments [facility]. [place], [place] NAME: MARYCRUZ FRANKLIN [facility] REC#: [id number] PT STATUS: REG ER : 1975 PHYSICIAN: MELINDA LYNCH MD ADMIT DATE: 11/22/21/ER Draft Date of Exam:11/22/21 CHEST 1 VIEW, AP/PA ONLY INDICATION: Chest pain Frontal chest obtained at 9:02 a.m. and compared to 11/16/2021. Heart is mildly enlarged. There is no focal infiltrate or pneumothorax or pleural fluid. IMPRESSION: Mild cardiomegaly with no acute process in the chest. Dictated on workstation # [id number] Dict: 11/22/21 0913 Trans: 11/22/21 0916 BI [id number] Interpreted by: KENYA ALLEN MD Electronically signed by: Departure Communication (Admissions) Time/Spoke to Consulting Phy: 09:[address] Eugene Impression Primary Impression: Chest pain Qualified Codes: R07.9 - Chest pain, unspecified Additional Impression: Acute coronary syndrome Disposition: ADMITTED INPATIENT Condition: Stable Admissions Decision to Admit Reason: Admit from ER (General) Decision to Admit/Date: Nov 22, 2021 Time/Decision to Admit Time: 10:03 Departure-Patient Inst. Referrals: MISSAEL BACK MD (PCP/Family) Primary Care Physician MELINDA LYNCH MD Nov 22, 2021 09:29
[2021-11-22] MEDS ORDERED: ONDANSETRON 4 MG/2 ML (SDV) Z0FRAN IVP ONE (09:30)
[2021-11-22 09:37] LABS: ALANINE AMINOTRANSFERASE 59 U/L (0-55); ALBUMIN 4.7 GM/DL (3.2-4.5); ALKALINE PHOSPHATASE 111 U/L (40-136); BILIRUBIN,TOTAL 0.7 MG/DL (0.1-1.0); BUN/CREATININE RATIO 14; CARBON DIOXIDE 21 MMOL/L (21-32); CHLORIDE 102 MMOL/L (98-107); CREATININE SERUM 1.45 MG/DL (0.60-1.30); GFR ESTIMATED 59; GLUCOSE 123 MG/DL (70-105); MAGNESIUM 1.9 MG/DL (1.6-2.4); SODIUM 138 MMOL/L (135-145); TOTAL PROTEIN 7.5 GM/DL (6.4-8.2)
[2021-11-22] MEDS ORDERED: NITROGLYCERIN 0.4 MG SL TABS BTL 25'S SL STA (09:37)
[2021-11-22] MEDS: NS IV 1000 ML 1,000 ML IV SCH ×5 (09:45→19:48)
[2021-11-22] MEDS ORDERED: NS IV 1000 ML 1,000 ML IV SCH (10:00)
[2021-11-22] MEDS ORDERED: HEParin 1000 UNIT/ML (10ML VIAL) FOR BOLUS ONE (10:04)
[2021-11-22] MEDS ORDERED: fentaNYL INJ 100 MCG/2 ML AMP ONE (10:04)
[2021-11-22] MEDS ORDERED: MIDAZOLAM 5 MG/5 ML (VERSED) VIAL ONE (10:04)
[2021-11-22] MEDS ORDERED: LIDOCAINE 1% INJ 20 ML VIAL ONE (10:04)
[2021-11-22] MEDS ORDERED: NS IV 1000 ML 1,000 ML ONE (10:05)
[2021-11-22] MEDS ORDERED: NITRO DRIP 25000 MCG/D5W 250 ML IV ONE (10:05)
[2021-11-22] MEDS ORDERED: HEParin (CATH LAB) 2,000 ML IV ONE (10:05)
--- NOTE | 2021-11-22 10:08 | Cardiology History & Physical ---
HPI-Cardiology Cardiology Consultation Date of Consultation 11/22/21 Date of Admission Time Seen by Provider: 10:08 Indication: Chest pain HPI 46 years old gentleman with recent admission for non-ST elevation myocardial infarction and congestive heart failure hypertensive emergency, underwent cardiac catheterization and stenting to a small circumflex artery. Patient has been compliant with his medications started to have active chest pain this afternoon did not respond to nitroglycerin, he is diaphoretic, having shortness of breath. An EKG changes with T wave inversion in the anterolateral leads. PMH-Cardiology Seasonal Allergies Seasonal Allergies: No Reproductive System Sexually Transmitted Disease: No HIV/AIDS: No HEENT Loss of Vision: Denies Cancer Did You Recieve Any Treatments: No Blood Transfusions No Adverse Rxn to Transfusion: No Other PMHx Discussed with Social History Patient Social History Marrital Status: Employed/Student: employed Alcohol Use?: Yes Family Hx Significant Family History: Heart Disease, Hypertension ROS-Cardiology Review of Systems General: No Chills, No Night Sweats, No Fatigue; Malaise; No Appetite HEENT: No Head Aches, No Visual Changes, No Eye Pain, No Ear Pain, No Dyspha dionicio, No Sinus Congestion, No Post Nasal Drip, No Sore Throat Pulmonary: Dyspnea; No Cough, No Pleuritic Chest Pain Cardiovascular: Chest Pain; No: Palpitations, Orthopnea, Paroxysmal Noc. Dyspnea, Edema, Lt Headedness Gastrointestinal: No: Nausea, Vomiting, Abdominal Pain, Diarrhea, Constipation, Melena, Hematochezia Genitourinary: No Dysuria, No Frequency, No Incontinence, No Hematuria, No Retention Musculoskeletal: No: neck pain, shoulder pain, arm pain, back pain, hand pain, leg pain, foot pain Neurological: No: Weakness, Numbness, Incoordination, Change in speech, Confusion, Seizures Home Medications & Allergies Allergies: Coded Allergies: No Known Drug Allergies (Unverified , 11/16/21) Home Medication List Reviewed: Yes Exam-Cardiology Vital Signs Vital Signs Date Time Temp Pulse Resp B/P (MAP) Pulse Ox O2 Delivery O2 Flow Rate FiO2 11/22/21 13:00 18 142/88 98 Room Air 11/22/21 12:26 67 11/22/21 09:10 36.2 Exam General Appearance: Alert, Oriented X3, Cooperative, No Acute Distress HEENT: Atraumatic, PERRLA Respiratory: Clear to Auscultation, Normal Air Movement Cardiovascular: Regular Rate, Normal S1, Normal S2, No Murmurs Abdominal: Normal Bowel Sounds, Soft, No Tenderness, No Hepatosplenomegaly, No Masses Extremities: No Clubbing, No Cyanosis, No Edema, Normal Pulses, No Tenderness/Swelling Skin: No Rashes, No Breakdown, No Significant Lesion Neuro: Normal Gait, Normal Speech, Strength at 5/5 X4 Ext, Normal Tone, Sensation Intact Psych/Mental Status: Mental Status NL, Mood NL Results Labs Labs Laboratory Tests 11/22/21 09:03: White Blood Count 13.3H, Red Blood Count 5.63H, Hemoglobin 16.2, Hematocrit 47, Mean Corpuscular Volume 83, Mean Corpuscular Hemoglobin 29, Mean Corpuscular Hemoglobin Concent 35, Red Cell Distribution Width 12.9, Platelet Count 322, Mean Platelet Volume 10.4, Immature Granulocyte % (Auto) 0, Neutrophils (%) (Auto) 67, Lymphocytes (%) (Auto) 18, Monocytes (%) (Auto) 10, Eosinophils (%) (Auto) 3, Basophils (%) (Auto) 1, Neutrophils # (Auto) 8.9H, Lymphocytes # (Auto) 2.4, Monocytes # (Auto) 1.3H, Eosinophils # (Auto) 0.4H, Basophils # (Auto) 0.1, Immature Granulocyte # (Auto) 0.0, Prothrombin Time 13.2, INR Comment 1.0, Activated Partial Thromboplast Time 28, Sodium Level 138, Potassium Level 4.0, Chloride Level 102, Carbon Dioxide Level 21, Anion Gap 15H, Blood Urea Nitrogen 21H, Creatinine 1.45H, Estimat Glomerular Filtration Rate 59, BUN/Creatinine Ratio 14, Glucose Level 123H, Calcium Level 10.0, Corrected Calcium , Magnesium Level 1.9, Total Bilirubin 0.7, Aspartate Amino Transf (AST/SGOT) 36H, Alanine Aminotransferase (ALT/SGPT) 59H, Alkaline Phosphatase 111, Myoglobin 42.2, Troponin I 0.088H, Total Protein 7.5, Albumin 4.7H A/P-Cardiology Admission Diagnosis Chest pain Non-ST elevation myocardial infarction Coronary artery disease Congestive heart failure, acute left ventricular systolic dysfunction, combined ischemic and nonischemic cardiomyopathy Admission Status: Inpatient Order (span 2 midnights) Reason for Inpatient Admission: Non-ST elevation myocardial infarction Assessment/Plan Chest pain, non-ST elevation myocardial infarction, plan to proceed with emergency cardiac catheterization possible PTCA Coronary artery disease, cardiac catheterization carried out on November 18, 2021 showing 80% stenosis in the proper circumflex artery, successful primary stenting using yevgeniy point stent 2.25 x 15 mm. The distal circumflex artery has 80% stenosis, very small artery, proximal circumflex artery has 40 to 50% stenosis, mid LAD has 40 to 50% stenosis, mild disease in the right coronary artery. Elevated left ventricular end-diastolic pressure Started on aspirin and Plavix. Hypertension with admission for hypertensive emergency, blood pressure is b tony. Continue to monitor blood pressure Congestive heart failure, acute left ventricular systolic dysfunction, combined ischemic and nonischemic cardiomyopathy Ejection fraction 30 to 35%, Using Toprol-XL and Entresto and tolerating medication well. Headache with double vision, could be secondary to hypertensive emergency, Work-up for stroke has been negative so far. Continue to monitor closely. Tobaccoism, educated on smoking cessation. Hyperlipidemia, Continue to monitor liver Obesity, BMI 32 Family history of atherosclerosis Clinical Quality Measures AMI/AHF: ASA po Prior to arrival: Yes BASHIR HOWARD MD Nov 22, 2021 10:08
--- NOTE | 2021-11-22 10:08 | Conscious Sedation/ASA ---
Conscious Sedation Pre-Proced Time 10:08 ASA Score 3 For ASA 3 and 4: Consider anesthesia and medical clearance. Also, for patients with a history of failed moderate sedation consider anesthesia. Airway Lungs Heart ASA score ASA 1: a normal healthy patient ASA 2: a patient with a mild systemic disease (mid diabetes, controlled hypertension, obesity x ASA 3: a patient with a severe systemic disease that limits activity (angina, COPD, prior Myocardial infarction) ASA 4: a patient with an incapacitating disease that is a constant threat to life (CHF, renal failure) ASA 5: a moribund patient not expected to survive 24 hrs. (ruptured aneurysm) ASA 6: a declared brain- patient whose organs are being harvested. For emergent operations, add the letter E after the classification Mallampati Classification Grade 3 Sedation Plan Analgesia, Amnesia, Plan communicated to team members, Discussed options with patient/fam, Discussed risks with patient/fam The patient is an appropriate candidate to undergo the planned procedure, sedation, and anesthesia. The patient immediately re-assessed prior to indication. BASHIR HOWARD MD Nov 22, 2021 10:08
[2021-11-22 10:13] VITALS: BP 101/59
[2021-11-22] MEDS ORDERED: EPTIFIBATIDE BOLUS 20 ML IV ONE (10:53)
[2021-11-22] MEDS ORDERED: TICAGRELOR 90 MG TABLET (BRILINTA) PO ONE (11:03)
[2021-11-22] MEDS ORDERED: ASPIRIN 325 MG (5 GR) TABLET ONE (11:03)
[2021-11-22] MEDS ORDERED: PATIENT MAY USE OWN MEDS, ALL PO SCH (11:15)
--- NOTE | 2021-11-22 12:16 | Tele-ICU Progress Note ---
Subjective Date Seen by a Provider: Nov 22, 2021 Time Seen by a Provider: 12:00 Subjective/Events-last exam This virtual visit was conducted using real time audio/video. Thank you for asking us to see this patient for chest pain and recd Circumflex stent. Recent events: PMH: Discharged 11/19/21 following NSTEMI, stented, Isch. CMP w EF 30-35%. Has Life Vest. Also: htn, HL SH: smoking history: recently quit FH: DM, htn. ROS: as in HPI PE: VSS. O2 sat 99% on RA HEENT: No obvious masses, adenopathy or JVD. Chest: clear to auscultation. CV: RRR S1 S2 No murmur or added sounds. Abd: Non-tender. Bowel sounds Y. : Unremarkable. Levy N. RECRUITER MANAGER/psychiatric: Grossly intact. No obvious focal findings. Extremities: No edema. Capillary refill < 3 seconds. Skin: unremarkable. Results: Elevated BUN 21, Creat 1.45, BG 123, Trop 0.088, WCC 13.3. CXR: Cardiomegaly. Available chart/ vitals / labs / images reviewed. Video assessment done using teleICU camera, rest of exam as per RN. A/P: Critical Care: critically ill patient. Cont. ASA, Brilinta, Norv., statin, HCTZ, metoprolol, PPI, Entreste. Discussed with SHANTAL Willams. Asked RN to reach out to eICU if any questions or concerns later. Time spent with patient/coordination of care with other health professionals (mins): 20. Sepsis Event Evaluation Height, Weight, BMI Height: '" Weight: lbs. oz. kg; 32.00 BMI Method: Exam Exam Patient acknowledged, consented, and participated in this virtual visit which was conducted using real time audio/video Vital Signs Date Time Temp Pulse Resp B/P (MAP) Pulse Ox O2 Delivery O2 Flow Rate FiO2 11/22/21 12:00 9 126/81 99 Room Air 11/22/21 11:45 15 123/85 98 Room Air 11/22/21 11:39 70 11/22/21 11:30 135/80 Room Air 11/22/21 10:13 74 10 101/59 99 Room Air 11/22/21 09:10 36.2 54 12 138/90 (106) 99 Room Air Height & Weight Height: '" Weight: lbs. oz. 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 Critical Care: Critically Ill Patient MARCO A DENIS MD Nov 22, 2021 12:16
--- NOTE | 2021-11-22 14:13 | Cardiac Procedure Note-CS/ASA ---
Pre-Procedure Note Pre-Op Procedure Note Date H&P Reviewed: Nov 22, 2021 Time H&P Reviewed: 10:08 History & Physical: H&P Reviewed, Patient Examed, No changes noted Pre-Operative Diagnosis: Coronary artery disease, congestive heart failure Conscious Sedation Pre-Proced Time 10:08 ASA Score 3 For ASA 3 and 4: Consider anesthesia and medical clearance. Also, for patients with a history of failed moderate sedation consider anesthesia. Airway Lungs Heart ASA score ASA 1: a normal healthy patient ASA 2: a patient with a mild systemic disease (mid diabetes, controlled hypertension, obesity ASA 3: a patient with a severe systemic disease that limits activity (angina, COPD, prior Myocardial infarction) ASA 4: a patient with an incapacitating disease that is a constant threat to life (CHF, renal failure) ASA 5: a moribund patient not expected to survive 24 hrs. (ruptured aneurysm) ASA 6: a declared brain- patient whose organs are being harvested. For emergent operations, add the letter E after the classification Mallampati Classification Grade 3 Sedation Plan Analgesia, Amnesia, Plan communicated to team members, Discussed options with patient/fam, Discussed risks with patient/fam The patient is an appropriate candidate to undergo the planned procedure, sedation, and anesthesia. The patient immediately re-assessed prior to indication. BASHIR HOWARD MD Nov 22, 2021 14:13
--- NOTE | 2021-11-22 14:20 | Cardiac Cath Report ---
Cardiac Cath Report Physician (s)/Sustainable Landscape Architect (s) Physician BASHIR HOWARD MD Pre-Procedure Diagnosis Pre-Procedure Diagnosis: Coronary artery disease, congestive heart failure Post-Procedure Note Procedure Start Date: Nov 22, 2021 Name of Procedure: Non-ST elevation myocardial infarction Findings/Procedure Note PROCEDURE NOTE: 46 years old gentleman with coronary artery disease, recent stent, malignant hypertension and severe cardiomyopathy. Admitted with acute non-ST elevation myocardial infarction Patient started to have sudden onset chest pain dull in nature and retrosternal area with diaphoresis, no full relieved with nitroglycerin but mild improvement. Emergency cardiac catheterization was advised with urgent intervention After explaining the procedure to the patient, all pros and cons were explained, all questions were answered. The patient signed the consent and then he was placed on the cardiac catheterization laboratory. Groin was prepped SL fashion local anesthesia was used. Sheath placed in the right femoral artery, angiogram to the left coronary system was done then I used Seth left 4.0 guide and advanced to the left coronary system, patient asking for occlusion of the proper circumflex artery beyond the recent stent. I proceeded with advancement of whisper medium support with difficulty in the proper circumflex artery, apparently the wire was unclear of the stent, I was unable to advance a balloon at that area I retracted the wire and then I used BMW wire with angled tip to cross to the stent. I was able to cross through the stent and advanced and parked distally then I advanced 2.5 x 20 mm balloon then I proceeded with deployment of 2.5 x 23 mm yevgeniy point stent expanded to 2.8 mm under 14 stephan. 8: The previous stent and extended to the origin of the artery at the bifurcation extending beyond the stent in the mid to distal circumflex artery, angiogram postintervention showed excellent results. Pigtail catheter was advanced to the left ventricular cavity and pressure was measured no left ventriculogram was done to limit the amount of contrast used, I did not engage the right coronary system or did angiogram to the right coronary system At the end of the procedure the sheath was removed. Closure device was deployed FINDINGS: Hemodynamics LV 113/11, end-diastolic pressure of 11 Aorta 126/65 mean of 91 ANATOMY: Left Main is free of obstructive disease Left Anterior Descending has moderate disease in the proximal and midportion nonobstructive disease Left Circumflex has moderate disease proximally, total occlusion after the origin of the first obtuse marginal branch with minimal recently deployed stent. Successful but complex intervention with deployment of a Stent yevgeniy point 2.5 x 23 mm extending from the holding segment and covering the previous stent from the proximal and distal area expanded to 2.8 mm with excellent results Right Coronary Artery was not evaluated LV Gram was not done, pressure was measured CONCLUSION: 1. Acute non-ST elevation myocardial infarction with emergency cardiac catheterization and rapid intervention for subacute stent thrombosis 2. Successful balloon angioplasty then deployment of a long skypoint stent 2.5 x 23 mm covering the previous stent and extending proximally and distally to cover the whole area expanded to 2.8 mm 3. Normal left ventricular end-diastolic pressure DISCUSSION AND RECOMMENDATION: I will continue to maximize medical therapy. Changing Plavix to Brilinta and continuing aspirin Anesthesia Type: Conscious Sedation Estimated blood loss (mL): 15 ml Contrast Amount: 74 ml Total Radiation Dose: 1034 mGy Post-Procedure Diagnosis Post-operative diagnosis: Non-ST elevation myocardial infarction Congestive heart failure, acute left ventricular systolic dysfunction, ischemic and nonischemic cardiomyopathy Hypertension Hyperlipidemia BASHIR HOWARD MD Nov 22, 2021 14:20
[2021-11-22] MEDS: SACUBITRIL/VALSARTAN 24/26 MG (ENTRESTO) TABLET PO SCH (20:56)
[2021-11-22] MEDS: TICAGRELOR 90 MG TABLET (BRILINTA) PO SCH (20:57)
[2021-11-22] MEDS ORDERED: cloNIDine 0.1 MG (CATAPRES) TAB PO SCH (21:00)
[2021-11-23] MEDS: NS IV 1000 ML 1,000 ML IV SCH ×2 (05:02→08:39)
[2021-11-23 05:37] LABS: HEMATOCRIT 43 % (40-54); HEMOGLOBIN 14.4 g/dL (13.3-17.7); MEAN CORPUSCULAR HEMOGLOBIN 29 pg (25-34); MEAN CORPUSCULAR HGB CONC 34 g/dL (32-36); MEAN CORPUSCULAR VOLUME 85 fL (80-99); MEAN PLATELET VOLUME 10.4 fL (9.0-12.2); PLATELET COUNT 241 10^3/uL (130-400); WHITE BLOOD COUNT 10.9 10^3/uL (4.3-11.0)
[2021-11-23 05:54] LABS: POTASSIUM 4.1 MMOL/L (3.6-5.0)
[2021-11-23 05:55] LABS: CALCIUM 9.4 MG/DL (8.5-10.1)
[2021-11-23 06:00] LABS: CREATININE SERUM 0.98 MG/DL (0.60-1.30); TRIGLYCERIDES 91 MG/DL (<150); VLDL CHOLESTEROL 18 MG/DL (5-40)
[2021-11-23 06:04] LABS: CHOLESTEROL 165 MG/DL (< 200)
[2021-11-23 06:05] LABS: HDL CHOLESTEROL 31 MG/DL (40-60)
[2021-11-23] MEDS: TICAGRELOR 90 MG TABLET (BRILINTA) PO SCH (08:38)
[2021-11-23] MEDS: SACUBITRIL/VALSARTAN 24/26 MG (ENTRESTO) TABLET PO SCH (08:38)
[2021-11-23] MEDS ORDERED: ASPIRIN E.C. 81 MG (ECOTRIN) TAB PO SCH (09:00)
[2021-11-23] MEDS ORDERED: PANTOPRAZOLE 40 MG (PROTONIX) TAB PO SCH (09:00)
[2021-11-23] MEDS ORDERED: amLODIPine 5 MG (NORVASC) TAB PO SCH (09:00)
[2021-11-23] MEDS ORDERED: meTOprolol SUCCINATE 100 MG (TOPROL XL) TAB PO SCH (09:00)
[2021-11-23] MEDS ORDERED: TICA90TA PO (13:45)
[2021-11-23] MEDS ORDERED: CLN.1T PO (13:45)
[2021-11-23] MEDS ORDERED: ATOR80TA76 PO (13:45)
--- NOTE | 2021-11-23 13:46 | Discharge Inst-Post CATH ---
Discharge Inst-CATH/EP Problems Reviewed?: Yes Post Cardiac Cath/EP D/C Inst Follow Up/Plan Appointment with Dr. Eugene's office in 1 to 2 weeks <b>CARDIAC CATH/EP PROCEDURE DISCHARGE INSTRUCTIONS</b> ACTIVITY * Go Home directly and rest. * Limit activity of the leg (or wrist if it was used) for 7 days including aer obics, swimming, jogging, bicycling, etc. * Restrict stair-climbing for 7 days if possible, if not, climb up with your non-cath leg, then bring together on the same step. * Avoid lifting, pushing, pulling or excessive movement of the affected extremi ty for 7 days. * Customary sexual activity may be resumed after 2 days-use caution not to use a position that strains or causes pain to the affected extremity. * No driving for 24 hours. * NO SMOKING. * Avoid straining for bowel movements for 7 days. * Gentle walking on level ground is allowed. * Returning to work will depend on the type of procedure and the results. Your doctor will discuss this with you. CALL YOUR DOCTOR FOR ANY OF THE FOLLOWING: *If bleeding from the puncture site occurs- Apply gentle pressure to site with clean cloth and call your doctor or EMS. * If a knot or lump forms under the skin, increases in size, or causes pain. * If bruising appears to be worsening or moving further down your leg instead of disappearing. * Temperature above 101 F. CARE OF YOUR GROIN INCISION; * Bruising or purple discoloration of the skin near the puncture site is common. * You may shower only, no bathtub bathing for 5 days. Be careful to avoid slipping as your leg may feel stiff. * If a closure device was used on your femoral artery, please see the attached guide regarding care of the device and your leg. * Leave dressing on FOR 24 hours. CARE OF YOUR WRIST INCISION; * Bruising or purple discoloration of the skin near the puncture site is common. * You may shower. * DO NOT submerge wrist. * Leave dressing on FOR 24 hours. BASHIR EUGENE MD Nov 23, 2021 13:46
--- NOTE | 2021-11-23 13:51 | Cardiology Progress Note ---
Subjective Date Seen by Provider: Nov 23, 2021 Time Seen by Provider: 13:47 Subjective/Events-last exam Patient was seen at bedside, laying comfortably, denied any active chest pain. Blood pressure is better. Review of Systems General: No Chills, No Night Sweats, No Fatigue, No Malaise, No Appetite, No Other HEENT: No Head Aches, No Visual Changes, No Eye Pain, No Ear Pain, No Dysphasia, No Sinus Congestion, No Post Nasal Drip, No Sore Throat, No Other Pulmonary: No Dyspnea, No Cough, No Pleuritic Chest Pain, No Other Cardiovascular: No: Chest Pain, Palpitations, Orthopnea, Paroxysmal Noc. Dyspnea, Edema, Lt Headedness, Other Objective-Cardiology Exam Last Set of Vital Signs Vital Signs 11/23/21 11/23/21 11:39 13:00 Temp 36.2 Pulse 65 Resp 25 B/P (MAP) 122/69 Pulse Ox 96 O2 Delivery Room Air I&O Intake and Output 11/23/21 00:00 Intake Total 1420 ml Output Total 1775 ml Balance -355 ml Intake Oral 1420 ml Output Urine Total 1775 ml General: Alert, Oriented X3, Cooperative, No Acute Distress HEENT: Atraumatic, PERRLA Neck: Supple, No JVD, No Thyromegaly Lungs: Clear to Auscultation, Normal Air Movement Heart: Regular Rate, Normal S1, Normal S2, No Murmurs Abdomen: Normal Bowel Sounds, Soft, No Tenderness, No Hepatosplenomegaly, No Masses Extremities: No Clubbing, No Cyanosis, No Edema, Normal Pulses, No Tenderness/Swelling Skin: No Rashes, No Breakdown, No Significant Lesion Neuro: Normal Gait, Normal Speech, Strength at 5/5 X4 Ext, Normal Tone, S ensation Intact Psych/Mental Status: Mental Status NL, Mood NL Results Lab Laboratory Tests 11/23/21 04:50 A/P-Cardiology Admission Diagnosis Chest pain Non-ST elevation myocardial infarction Coronary artery disease Congestive heart failure, acute left ventricular systolic dysfunction, combined ischemic and nonischemic cardiomyopathy Assessment/Plan Chest pain, non-ST elevation myocardial infarction. Status post emergency cardiac catheterization and stenting of a totally occluded circumflex artery. Coronary artery disease, cardiac catheterization carried out on November 18, 2021 showing 80% stenosis in the proper circumflex artery, successful primary stenting using yevgeniy point stent 2.25 x 15 mm. The distal circumflex artery has 80% stenosis, very small artery, proximal circumflex artery has 40 to 50% stenosis, mid LAD has 40 to 50% stenosis, mild disease in the right coronary ar dayo. Elevated left ventricular end-diastolic pressure Repeat cardiac catheterization was done on November 22, 2021 after having non-ST elevation myocardial infarction which showed total occlusion of the circumflex artery, another intervention on the circumflex artery with balloon angioplasty then deployment of a yevgeniy point stent 2.5 x 23 mm placed inside the old stent and extending to the proximal and distal portion of that artery and expanded to 2.8 mm with excellent results. Patient was on aspirin and Plavix, I have discontinued Plavix and switch him to Brilinta I will evaluate CYP 2C19 for Plavix metabolism Hypertension, history of hypertensive emergency Blood pressure is much better controlled at this time. I stopped clonidine I instructed him to use clonidine only as needed otherwise continue on Entresto and metoprolol and amlodipine Congestive heart failure, acute left ventricular systolic dysfunction, combined ischemic and nonischemic cardiomyopathy Ejection fraction 30 to 35%, Using Toprol-XL and Entresto and tolerating medication well. Patient is using LifeVest Headache with double vision, could be secondary to hypertensive emergency, No further episodes of headache Tobaccoism, educated on smoking cessation. Hyperlipidemia, Continue to monitor liver Obesity, BMI 32 Family history of atherosclerosis Final diagnosis: Non-ST elevation myocardial infarction Coronary artery disease Hypertension Hyperlipidemia Congestive heart failure, acute left ventricular systolic dysfunction, combined nonischemic and ischemic cardiomyopathy BASHIR HOWARD MD Nov 23, 2021 13:51
== END 2021-11-23 14:33 | disposition home or self-care (01) ==
LOC: EDUNIT# 08:52 → ER 08:54 → SDC 10:09 → ICU 11:30 → SDC 11-23 14:33
PROVIDERS: ATTEND Internal Medicine Cardiovascular Disease
DX: I21.4 Non-ST elevation (NSTEMI) myocardial infarction (principal); I11.0 Hypertensive heart disease with heart failure; I50.21 Acute systolic (congestive) heart failure; I25.10 Atherosclerotic heart disease of native coronary artery without angina pectoris; I97.190 Other postprocedural cardiac functional disturbances following cardiac surgery; T82.867A Thrombosis due to cardiac prosthetic devices, implants and grafts, initial encounter; E78.5 Hyperlipidemia, unspecified; I25.5 Ischemic cardiomyopathy; I42.8 Other cardiomyopathies; E66.9 Obesity, unspecified; Z68.32 Body mass index [BMI] 32.0-32.9, adult; Z79.82 Long term (current) use of aspirin; Z95.5 Presence of coronary angioplasty implant and graft; Z79.899 Other long term (current) drug therapy; Z87.891 Personal history of nicotine dependence
CPT/HCPCS: 71045; 80048; 80053; 80061; 81225; 83735; 83874; 84484; 85025; 85027; 85610; 85730; 93005 ×2; 93041; 93458; 99285; C1725; C1760; C1769 ×3; C1874; C1887; C1894; C9606; 36415

== ENCOUNTER 2022-01-04 12:09 | Emergency (ER) | payer BC ==
[~2022-01-04] VITALS: Ht 176 cm; Wt 84.8 kg
[~2022-01-04 12:09] MED LIST changes: +ATOR80TA76 PO; +TICA90TA PO
[2022-01-04 12:28] LABS: ABG BASE EXCESS -2.4 MMOL/L (-2.5-2.5); ABG OXYGEN SATURATION 100 % (94-100); ABG PO2 118 MMHG (79-93); ABG TCO2 19.6 MMOL/L (21.0-31.0)
[2022-01-04 12:32] LABS: ABG PH 7.62 (7.37-7.43)
[2022-01-04 12:33] LABS: ABG PCO2 18 MMHG (35-45); ALLENS TEST YES-POS
[2022-01-04 12:34] LABS: INSPIRED O2 ROOM AIR; PATIENT TEMP 36.6; VENTILATOR NO
--- NOTE | 2022-01-04 12:34 | ED Cardiac General ---
History of Present Illness General Chief Complaint: Chest Pain Stated Complaint: SYNCOPE Source: patient Exam Limitations: no limitations History of Present Illness Date Seen by Provider: Jan 04, 2022 Time Seen by Provider: 12:07 Initial Comments Patient to the ER by private conveyance from [employer] where he works with chief complaint about half an hour prior to arrival he started experiencing weakness in his legs, numbness and tingling in his fingertips and face and some shortness of air. He is not having any chest pain. He does have a history of coronary disease with a stent followed by Dr. Eugene. He has a LifeVest on. He is on hydrochlorothiazide but not other diuretics. He has been taking his medications routinely including Brilinta. He did not pass out. He says he felt very weak and tired and so was helped to a chair by staff. Blood pressure ranged between 120-140 systolic. His states that when they put the pulse oximeter on his finger initially it read in the 60s to 70s. They put him on oxygen. He does not use supplemental oxygen at baseline. Unfortunately because there was not an available ambulance in the [facility] the patient elected to come in by POV with fire in tow. He denies any fevers chills nausea vomiting or recent illness. He quit smoking in October when he had his stroke and heart iss ues. He had a stroke with some visual disturbance and gaze deviation as well as right sided weakness in his leg. The visual disturbances have gone away within the first week however the leg he still drags some when he walks according to his . No diabetes. He does have hypertension, hyperlipidemia. The patient was dealing with some constipation and this all started when he was going to the bathroom and had a hard bowel movement with a little bit of bright red blood seen. History of a non-ST elevation AK in October with in-stent restenosis in early November. Switched to Brilinta. History of hypertension, hyperlipidemia, congest dane heart failure with an EF of 30 to 35% from 1 month ago on Toprol and Entresto. Theorized that hypertensive emergency could have caused the headache and double vision as it went away after treating his hypertension. Obesity and a family history of atherosclerosis. Allergies and Home Medications Allergies Coded Allergies: No Known Drug Allergies (Unverified , 11/16/21) Patient Home Medication List Home Medication List Reviewed: Yes Amlodipine Besylate (Amlodipine Besylate) 5 Mg Tablet, 5 MG PO DAILY Prescribed by: BASHIR EUGENE on 11/19/21 1431 Aspirin (Aspirin EC) 81 Mg Tablet.dr, 81 MG PO DAILY Prescribed by: BASHIR EUGENE on 11/19/21 1431 Atorvastatin Calcium (Atorvastatin Calcium) 80 Mg Tablet, 80 MG PO HS Prescribed by: BASHIR EUGENE on 11/23/21 1345 Clonidine HCl (Clonidine HCl) 0.1 Mg Tablet, 0.1 MG PO BID Prescribed by: BASHIR EUGENE on 11/23/21 1345 Hydrochlorothiazide (Hydrochlorothiazide) 25 Mg Tablet, 25 MG PO DAILY Prescribed by: BASHIR EUGENE on 11/19/21 1435 Metoprolol Succinate (Metoprolol Succinate) 100 Mg Tab.er.24h, 100 MG PO DAILY Prescribed by: BASHIR EUGENE on 11/19/21 1431 Pantoprazole Sodium (Pantoprazole Sodium) 40 Mg Tablet.dr, 40 MG PO DAILY Prescribed by: BASHIR EUGENE on 11/19/21 1431 Sacubitril/Valsartan (Entresto 24 mg-26 mg Tablet) 24 Mg-26 Mg Tablet, 1 TAB PO BID Prescribed by: BASHIR EUGENE on 11/19/21 1431 Ticagrelor (Brilinta) 90 Mg Tablet, 90 MG PO BID Prescribed by: BASHIR EUGENE on 11/23/21 1345 Review of Systems Review of Systems Constitutional: No chills; diaphoresis, dizziness, weakness EENTM: No Blurred Vision, No Double Vision Respiratory: Denies Cough; Shortness of Air; Denies SOA With Exertion, Denies SOA at Rest, Denies Wheezing Cardiovascular: Denies Chest Pain; Lightheadedness Gastrointestinal: Denies Abdominal Pain, Denies Constipated, Denies Diarrhea, Denies Nausea Genitourinary: Denies Burning, Denies Discharge Musculoskeletal: No back pain, No joint pain Skin: No pruritus, No rash All Other Systems Reviewed Negative Unless Noted: Yes Past Gavftgn-Jhbhvu-Sebqno Hx Patient Social History Tobacco Use?: No Smoking Status: Former Smoker Use of E-Cig and/or Vaping dev: No Substance use?: No Alcohol Use?: No Pt feels they are or have been: No Immunizations Up To Date First/Initial COVID19 Vaccinat: UNKNOWN DATE Second COVID19 Vaccination Jose Angel: UNKNOWN DATE Third COVID19 Vaccination Date: UNKNOWN DATE Seasonal Allergies Seasonal Allergies: No Past Medical History Currently Using CPAP: No Currently Using BIPAP: No Hypertension Sexually Transmitted Disease: No HIV/AIDS: No Loss of Vision: Denies Did You Recieve Any Treatments: No Blood Disorders: No Adverse Reaction/Blood Tranf: No Family Medical History Heart Disease, Hypertension Physical Exam Vital Signs Vital Signs - First Documented 01/04/22 12:10 Temp 36.6 Pulse 88 Resp 23 B/P (MAP) 124/87 (99) Pulse Ox 100 O2 Delivery Room Air Capillary Refill : Less Than 3 Seconds Height, Weight, BMI Height: '" Weight: lbs. oz. kg; 32.85 BMI Method: General Appearance: WD/WN, Anxious HEENT: PERRL/EOMI, Pharynx Normal, Moist Mucous Membranes Neck: Full Range of Motion, Normal Inspection Respiratory: Lungs Clear, Normal Breath Sounds, No Accessory Muscle Use, No Respiratory Distress Cardiovascular: Regular Rate, Rhythm, No Edema, Normal Peripheral Pulses Extremity: Normal Capillary Refill, Normal Inspection, No Pedal Edema Neurologic/Psychiatric: Alert, Oriented x3, Motor Weakness (4 out of 5 motor strength in his right leg.), Other (Paresthesias described in fingertips and mouth.) Progress/Results/Core Measures Results/Orders Lab Results Laboratory Tests Test 01/04/22 12:17 01/04/22 12:24 01/04/22 12:29 01/04/22 14:23 Range/Units White Blood Count 7.6 4.3-11.0 10^3/uL Red Blood Count 4.24 L 4.30-5.52 10^6/uL Hemoglobin 11.9 L 13.3-17.7 g/dL Hematocrit 34 L 40-54 % Mean Corpuscular Volume 80 80-99 fL Mean Corpuscular Hemoglobin 28 25-34 pg Mean Corpuscular Hemoglobin Concent 35 32-36 g/dL Red Cell Distribution Width 12.9 10.0-14.5 % Platelet Count 309 130-400 10^3/uL Mean Platelet Volume 9.4 9.0-12.2 fL Immature Granulocyte % (Auto) 0 % Neutrophils (%) (Auto) 57 42-75 % Lymphocytes (%) (Auto) 24 12-44 % Monocytes (%) (Auto) 14 H 0-12 % Eosinophils (%) (Auto) 4 0-10 % Basophils (%) (Auto) 1 0-10 % Neutrophils # (Auto) 4.4 1.8-7.8 10^3/uL Lymphocytes # (Auto) 1.9 1.0-4.0 10^3/uL Monocytes # (Auto) 1.0 0.0-1.0 10^3/uL Eosinophils # (Auto) 0.3 0.0-0.3 10^3/uL Basophils # (Auto) 0.1 0.0-0.1 10^3/uL Immature Granulocyte # (Auto) 0.0 0.0-0.1 10^3/uL Prothrombin Time 13.3 12.2-14.7 SEC INR Comment 1.0 0.8-1.4 Activated Partial Thromboplast Time 28 24-35 SEC Sodium Level 138 135-145 MMOL/L Potassium Level 3.5 L 3.6-5.0 MMOL/L Chloride Level 99 98-107 MMOL/L Carbon Dioxide Level 20 L 21-32 MMOL/L Anion Gap 19 H 5-14 MMOL/L Blood Urea Nitrogen 29 H 7-18 MG/DL Creatinine 1.75 H 0.60-1.30 MG/DL Estimat Glomerular Filtration Rate 47 BUN/Creatinine Ratio 17 Glucose Level 126 H 70-105 MG/DL Calcium Level 10.3 H 8.5-10.1 MG/DL Corrected Calcium 10.1 8.5-10.1 MG/DL Magnesium Level 1.6 1.6-2.4 MG/DL Total Bilirubin 1.3 H 0.1-1.0 MG/DL Aspartate Amino Transf (AST/SGOT) 32 5-34 U/L Alanine Aminotransferase (ALT/SGPT) 58 H 0-55 U/L Alkaline Phosphatase 181 H 40-136 U/L Myoglobin 80.3 10.0-92.0 NG/ML Troponin I < 0.028 <0.028 NG/ML B-Type Natriuretic Peptide 37.0 <100.0 PG/ML Total Protein 7.4 6.4-8.2 GM/DL Albumin 4.2 3.2-4.5 GM/DL Serum Alcohol < 10 <10 MG/DL Blood Gas Puncture Site LEFT RADIAL Blood Gas Patient Temperature 36.6 Arterial Blood pH 7.62 *H 7.37-7.43 Arterial Blood Partial Pressure CO2 18 *L 35-45 MMHG Arterial Blood Partial Pressure O2 118 H 79-93 MMHG Arterial Blood HCO3 19 L 23-27 MMOL/L Arterial Blood Total CO2 19.6 L 21.0-31.0 MMOL/L Arterial Blood Oxygen Saturation 100 94-100 % Arterial Blood Base Excess -2.4 -2.5-2.5 MMOL/L [place] Test YES-POS Blood Gas Ventilator Setting NO Blood Gas Inspired Oxygen ROOM AIR Glucometer 110 70-110 MG/DL Urine Color YELLOW Urine Clarity CLEAR Urine pH 6.0 5-9 Urine Specific [place] 1.010 L 1.016-1.022 Urine Protein NEGATIVE NEGATIVE Urine Glucose (UA) NEGATIVE NEGATIVE Urine Ketones NEGATIVE NEGATIVE Urine Nitrite NEGATIVE NEGATIVE Urine Bilirubin NEGATIVE NEGATIVE Urine Urobilinogen 0.2 < = 1.0 MG/DL Urine Leukocyte Esterase NEGATIVE NEGATIVE Urine RBC (Auto) NEGATIVE NEGATIVE Urine RBC RARE /HPF Urine WBC NONE /HPF Urine Squamous Epithelial Cells NONE /HPF Urine Crystals NONE /LPF Urine Bacteria TRACE /HPF Urine Casts PRESENT /LPF Urine Hyaline Casts RARE /LPF Urine Mucus NEGATIVE /LPF Urine Culture Indicated NO My Orders Orders - JIN,RIA J Ekg Tracing (01/04/22 12:14) Arterial Blood Gas (01/04/22 12:22) Cbc With Automated Diff (01/04/22 12:27) Magnesium (01/04/22 12:27) Chest 1 View, Ap/Pa Only (01/04/22 12:27) Comprehensive Metabolic Panel (01/04/22 12:27) Myoglobin Serum (01/04/22 12:27) Protime With Inr (01/04/22 12:27) Partial Thromboplastin Time (01/04/22 12:27) O2 (01/04/22 12:27) Monitor-Rhythm Ecg Trace Only (01/04/22 12:27) Lipid Panel (01/05/22 06:00) Ed Iv/Invasive Line Start (01/04/22 12:27) Bnp [place] (01/04/22 12:27) Troponin I [place] (01/04/22 12:27) Ua Culture If Indicated (01/04/22 12:27) Alprazolam Tablet (Xanax Tablet) (01/04/22 13:00) Alprazolam Tablet (Xanax Tablet) (01/04/22 12:55) Alcohol (01/04/22 12:57) Ed Iv/Invasive Line Start (01/04/22 12:57) Ns Iv 500 Ml (Sodium Chloride 0.9%) (01/04/22 13:00) Alprazolam Tablet (Xanax Tablet) (01/04/22 12:55) Ed Iv/Invasive Line Start (01/04/22 13:48) Ed Iv/Invasive Line Start (01/04/22 13:49) Lactated Ringers (Lr 1000 Ml Iv Solution (01/04/22 14:00) Medications Given in ED Current Medications Medications Dose Ordered Sig/Cristel Route Start Time Stop Time Status Last Admin Dose Admin Lactated Ringer's 1,000 ml @ 0 mls/hr Q0M ONCE IV 01/04/22 14:00 01/04/22 14:01 DC 01/04/22 13:54 0 MLS/HR Sodium Chloride 500 ml @ 0 mls/hr Q0M ONCE IV 01/04/22 13:00 01/04/22 13:01 DC 01/04/22 13:00 0 MLS/HR Vital Signs/I&O 01/04/22 12:10 Temp 36.6 Pulse 88 Resp 23 B/P (MAP) 124/87 (99) Pulse Ox 100 O2 Delivery Room Air Progress Progress Note #1: Time: 12:36 Progress Note The patient does use Xanax for panic attacks usually associated with driving long distances. He certainly describes perioral and fingertip paresthesias and looks anxious. We will look for underlying sources of his anxiety attack. An ABG does reveal respiratory alkalosis which would also be consistent with his presentation. Will offer him benzodiazepine. He never had any chest pain but we will go ahead and get an EKG, put him on the monitor and check some cardiac enzymes. We will get some labs and urine looking for other underlying causes of a panic attack. Progress Note #2: Time: 16:07 Progress Note Took the patient for a stroll up and down the ER bay and he did not have any near syncope. He states he feels much better and is eager to go home. 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 He did receive a total of 1500 cc of IV fluids. He also noted that he is no longer having the tingling and/or pain in his fingertips and toe tips Initial ECG Impression Date: Jan 04, 2022 Initial ECG Impression Time: 12:18 Initial ECG Rate: 91 Initial ECG Rhythm: Normal Sinus Initial ECG Intervals: Normal Initial ECG Impression: Normal Initial ECG Comparisson: Unchanged Comment Normal sinus rhythm with very subtle ST depression half a block in V4, V5 and V6. These findings were seen on previous EKGs from November 2021. No clinically relevant ST elevation or depression. Diagnostic Imaging Diagonstic Imaging: Xray Plain Films/CT/US/NM/MRI: chest Comments [facility]. [place], [place] NAME: MARYCRUZ FRANKLIN [facility] REC#: [id number] PT STATUS: REG ER : 1975 PHYSICIAN: RIA ABDI MD ADMIT DATE: 01/04/22/ER Draft Date of Exam:01/04/22 CHEST 1 VIEW, AP/PA ONLY INDICATION: Chest pain. COMPARISON: 11/22/2021. FINDINGS: Single frontal view of the chest demonstrates normal heart size and pulmonary vascularity. The lungs are well aerated and clear. No large pleural effusion or pneumothorax is seen. The visualized osseous structures show no acute abnormalities. IMPRESSION: 1. No acute cardiopulmonary process. Dictated on workstation # [id number] Dict: 01/04/22 1257 Trans: 01/04/22 1257 [id number] Interpreted by: EVELIA LORENZO MD Electronically signed by: Reviewed: Reviewed by Me Departure Impression Primary Impression: Dehydration Additional Impressions: MONA (acute kidney injury) Vagal reaction Panic attack as reaction to stress Disposition: 01 HOME, SELF-CARE Condition: Improved Departure-Patient Inst. Decision time for Depature: 16:07 Referrals: MISSAEL BACK MD (PCP/Family) Primary Care Physician Patient Instructions: Dehydration, Adult (DC), Near Fainting, Vasovagal Response Add. Discharge Instructions: Drink little extra water for the next week. Stop taking the hydrochlorothiazide, HCTZ. Follow-up in the next week to 2 weeks with your television script writer to discuss whether you should restart the blood pressure medicine, HCTZ. Return to the ER promptly for passing out episodes, chest pain, shortness of air or other worrisome symptoms. All discharge instructions reviewed with patient and/or family. Voiced understanding. Copy Copies To 1: MISSAEL BACK MD; BASHIR EUGENE MD, TITUS J Jan 04, 2022 12:34
[2022-01-04 12:36] LABS: BASOPHILS # (AUTO) 0.1 10^3/uL (0.0-0.1); BASOPHILS % (AUTO) 1 % (0-10); EOSINOPHILS # (AUTO) 0.3 10^3/uL (0.0-0.3); EOSINOPHILS % (AUTO) 4 % (0-10); HEMATOCRIT 34 % (40-54); HEMOGLOBIN 11.9 g/dL (13.3-17.7); LYMPHOCYTES # (AUTO) 1.9 10^3/uL (1.0-4.0); LYMPHOCYTES % (AUTO) 24 % (12-44); MEAN CORPUSCULAR HEMOGLOBIN 28 pg (25-34); MEAN CORPUSCULAR HGB CONC 35 g/dL (32-36); MEAN CORPUSCULAR VOLUME 80 fL (80-99); MEAN PLATELET VOLUME 9.4 fL (9.0-12.2); MONOCYTES % (AUTO) 14 % (0-12); NEUTROPHILS # (AUTO) 4.4 10^3/uL (1.8-7.8); NEUTROPHILS % (AUTO) 57 % (42-75); PLATELET COUNT 309 10^3/uL (130-400); WHITE BLOOD COUNT 7.6 10^3/uL (4.3-11.0)
[2022-01-04 12:40] LABS: ALBUMIN 4.2 GM/DL (3.2-4.5)
[2022-01-04 12:41] LABS: POTASSIUM 3.5 MMOL/L (3.6-5.0)
[2022-01-04 12:42] LABS: CALCIUM 10.3 MG/DL (8.5-10.1)
[2022-01-04 12:43] LABS: PROTHROMBIN TIME PATIENT 13.3 SEC (12.2-14.7); TOTAL PROTEIN 7.4 GM/DL (6.4-8.2)
[2022-01-04 12:45] LABS: BILIRUBIN,TOTAL 1.3 MG/DL (0.1-1.0)
[2022-01-04 12:47] LABS: CREATININE SERUM 1.75 MG/DL (0.60-1.30)
[2022-01-04 12:50] LABS: MAGNESIUM 1.6 MG/DL (1.6-2.4)
[2022-01-04] MEDS ORDERED: ALPRAZolam 0.5 MG (XANAX) TAB ONE (12:55)
[2022-01-04] MEDS ORDERED: ALPRAZolam 0.5 MG (XANAX) TAB PO STA (12:55)
--- NOTE | 2022-01-04 12:58 | Diagnostic Imaging Report ---
INDICATION: Chest pain. COMPARISON: 11/22/2021. FINDINGS: Single frontal view of the chest demonstrates normal heart size and pulmonary vascularity. The lungs are well aerated and clear. No large pleural effusion or pneumothorax is seen. The visualized osseous structures show no acute abnormalities. IMPRESSION: 1. No acute cardiopulmonary process. Dictated by: Dictated on workstation # [id number]
[2022-01-04] MEDS ORDERED: ALPRAZolam 1 MG (XANAX) TAB PO ONE (13:00)
[2022-01-04] MEDS ORDERED: NS IV 500 ML 500 ML IV ONE ×2 (13:00→14:00)
[2022-01-04] MEDS ORDERED: LACTATED RINGERS 1,000 ML IV ONE (14:00)
[2022-01-04 14:27] LABS: BILIRUBIN,URINE NEGATIVE (NEGATIVE); CLARITY,URINE CLEAR; COLOR,URINE YELLOW; GLUCOSE, URINE (UA) NEGATIVE (NEGATIVE); KETONES,URINE NEGATIVE (NEGATIVE); LEUKOCYTE ESTERASE ,URINE NEGATIVE (NEGATIVE); NITRITE,URINE NEGATIVE (NEGATIVE); PROTEIN,URINE NEGATIVE (NEGATIVE)
[2022-01-04 15:18] LABS: BACTERIA,URINE TRACE /HPF; RBC,URINE RARE /HPF
[2022-01-04 15:19] LABS: HYALINE CASTS, URINE RARE /LPF
[2022-01-04 16:17] VITALS: BP 126/62
== END 2022-01-04 16:17 | disposition home or self-care (01) ==
LOC: EDUNIT# 12:09 → ER 12:11
DX: E86.0 Dehydration (principal); N17.9 Acute kidney failure, unspecified; F41.0 Panic disorder [episodic paroxysmal anxiety]; F43.0 Acute stress reaction; R55 Syncope and collapse; Z87.891 Personal history of nicotine dependence
CPT/HCPCS: 71045; 80053; 81000; 82805; 82947; 83735; 83874; 83880; 84484; 85025; 85610; 85730; 93041; G0480; 36415; 80320; 93005

== ENCOUNTER → 2022-01-20 | Outpatient (RCR) | payer BC | LOC: CR 07:56 | PROVIDERS: ATTEND Internal Medicine Cardiovascular Disease | DX: Z29.8 Encounter for other specified prophylactic measures (principal); I21.9 Acute myocardial infarction, unspecified; Z95.5 Presence of coronary angioplasty implant and graft | CPT/HCPCS: 93798 ==

== ENCOUNTER 2022-02-17 10:04 | Outpatient (RCR) | payer BC | END 2022-02-20 | disposition home or self-care (01) | LOC: CR 10:04 | PROVIDERS: ATTEND Internal Medicine Cardiovascular Disease | DX: Z29.8 Encounter for other specified prophylactic measures (principal); I21.9 Acute myocardial infarction, unspecified; Z95.5 Presence of coronary angioplasty implant and graft | CPT/HCPCS: 93798 ==

== ENCOUNTER → 2022-02-22 | Outpatient (CLI) | payer BC | LOC: CARD 08:06 | PROVIDERS: ATTEND Physician Assistant | DX: I35.8 Other nonrheumatic aortic valve disorders (principal); I10 Essential (primary) hypertension; I25.10 Atherosclerotic heart disease of native coronary artery without angina pectoris | CPT/HCPCS: 93306 ==

== ENCOUNTER → 2022-03-22 | Outpatient (RCR) | payer BC | END | disposition home or self-care (01) | LOC: CR 02-22 06:24 | PROVIDERS: ATTEND Internal Medicine Cardiovascular Disease | DX: Z29.8 Encounter for other specified prophylactic measures (principal); I21.9 Acute myocardial infarction, unspecified; Z95.5 Presence of coronary angioplasty implant and graft | CPT/HCPCS: 93798 ==

== ENCOUNTER 2022-03-31 13:25 | Outpatient (RCR) | payer BC | END 2022-04-22 | disposition home or self-care (01) | LOC: CR 13:25 | PROVIDERS: ATTEND Internal Medicine Cardiovascular Disease | DX: Z29.8 Encounter for other specified prophylactic measures (principal); I21.9 Acute myocardial infarction, unspecified; Z95.5 Presence of coronary angioplasty implant and graft | CPT/HCPCS: 93798 ==

== ENCOUNTER → 2022-05-16 | Outpatient (CLI) | payer BC ==
--- NOTE | 2022-05-16 14:42 | Diagnostic Imaging Report ---
INDICATION: Knee pain. FINDINGS: Three-view left knee performed. No fracture, dislocation, abnormal periosteal reaction, loose body, or findings of a joint effusion. IMPRESSION: Unremarkable three-view left knee series. Dictated by: Dictated on workstation # [id number]
== END ==
LOC: RAD 12:43
PROVIDERS: ATTEND Nurse Practitioner Family
DX: M25.562 Pain in left knee (principal)
CPT/HCPCS: 73562

== ENCOUNTER 2022-06-12 10:04 | Emergency (ER) | payer BC ==
[2022-06-12 10:28] LABS: BASOPHILS % (AUTO) 0 % (0-10); EOSINOPHILS # (AUTO) 0.1 10^3/uL (0.0-0.3); EOSINOPHILS % (AUTO) 1 % (0-10); HEMATOCRIT 39 % (40-54); HEMOGLOBIN 13.4 g/dL (13.3-17.7); LYMPHOCYTES # (AUTO) 1.1 10^3/uL (1.0-4.0); LYMPHOCYTES % (AUTO) 10 % (12-44); MEAN CORPUSCULAR HEMOGLOBIN 27 pg (25-34); MEAN CORPUSCULAR HGB CONC 34 g/dL (32-36); MEAN CORPUSCULAR VOLUME 79 fL (80-99); MEAN PLATELET VOLUME 9.6 fL (9.0-12.2); MONOCYTES # (AUTO) 0.8 10^3/uL (0.0-1.0); MONOCYTES % (AUTO) 7 % (0-12); NEUTROPHILS # (AUTO) 9.3 10^3/uL (1.8-7.8); NEUTROPHILS % (AUTO) 82 % (42-75); PLATELET COUNT 271 10^3/uL (130-400); WHITE BLOOD COUNT 11.3 10^3/uL (4.3-11.0)
--- NOTE | 2022-06-12 10:28 | ED General ---
General Chief Complaint: General Problems/Pain Stated Complaint: LOW BLOOD PRESSURE | HIGH BLOOD SUGAR History of Present Illness Date Seen by Provider: Jun 12, 2022 Time Seen by Provider: 10:20 Initial Comments 47-year-old male presents with just complaints of generalized weakness. He reports that it was this morning when he is at work. His blood sugar was 194 which was high for him. That is blood pressure had a systolic of around 114 which was low for him. He just complains of generalized malaise but no other complaints. No reports of fevers chills nausea vomiting chest pain shortness of breath. Allergies and Home Medications Allergies Coded Allergies: No Known Drug Allergies (Unverified , 11/16/21) Patient Home Medication List Home Medication List Reviewed: Yes Amlodipine Besylate (Amlodipine Besylate) 5 Mg Tablet, 5 MG PO DAILY Prescribed by: BASHIR HOWARD on 11/19/21 1431 Aspirin (Aspirin EC) 81 Mg Tablet.dr, 81 MG PO DAILY Prescribed by: BASHIR HOWARD on 11/19/21 1431 Atorvastatin Calcium (Atorvastatin Calcium) 80 Mg Tablet, 80 MG PO HS Prescribed by: BASHIR HOWARD on 11/23/21 1345 Clonidine HCl (Clonidine HCl) 0.1 Mg Tablet, 0.1 MG PO BID Prescribed by: BASHIR HOWARD on 11/23/21 1345 Hydrochlorothiazide (Hydrochlorothiazide) 25 Mg Tablet, 25 MG PO DAILY Prescribed by: BASHIR HOWARD on 11/19/21 1435 Metoprolol Succinate (Metoprolol Succinate) 100 Mg Tab.er.24h, 100 MG PO DAILY Prescribed by: BASHIR HOWARD on 11/19/21 1431 Pantoprazole Sodium (Pantoprazole Sodium) 40 Mg Tablet.dr, 40 MG PO DAILY Prescribed by: BASHIR HOWARD on 11/19/21 1431 Sacubitril/Valsartan (Entresto 24 mg-26 mg Tablet) 24 Mg-26 Mg Tablet, 1 TAB PO BID Prescribed by: BASHIR HOWARD on 11/19/21 1431 Ticagrelor (Brilinta) 90 Mg Tablet, 90 MG PO BID Prescribed by: BASHIR HOWARD on 11/23/21 1345 Review of Systems Review of Systems Constitutional: No chills, No fever; malaise, weakness EENTM: no symptoms reported Respiratory: no symptoms reported Cardiovascular: no symptoms reported Gastrointestinal: no symptoms reported Genitourinary: no symptoms reported Musculoskeletal: no symptoms reported Skin: no symptoms reported Psychiatric/Neurological: No Symptoms Reported Hematologic/Lymphatic: No Symptoms Reported Immunological/Allergic: no symptoms reported Past Einwdwg-Nkeksc-Nlespd Hx Patient Social History Tobacco Use?: No Smoking Status: Former Smoker Substance use?: No Alcohol Use?: No Pt feels they are or have been: No Immunizations Up To Date Influenza Vaccine Up-to-Date: Yes; Up-to-Date First/Initial COVID19 Vaccinat: UNKNOWN DATE Second COVID19 Vaccination Jose Angel: UNKNOWN DATE Third COVID19 Vaccination Date: UNKNOWN DATE Seasonal Allergies Seasonal Allergies: No Past Medical History Surgery/Hospitalization HX: stents GERD, HLD, HTN Currently Using CPAP: No Currently Using BIPAP: No Hypertension Sexually Transmitted Disease: No HIV/AIDS: No Loss of Vision: Denies Did You Recieve Any Treatments: No Blood Disorders: No Adverse Reaction/Blood Tranf: No Family Medical History Heart Disease, Hypertension Physical Exam Vital Signs Vital Signs - First Documented 06/12/22 10:11 Temp 36.4 Pulse 80 Resp 16 B/P (MAP) 124/77 (93) Capillary Refill : Height, Weight, BMI Height: '" Weight: lbs. oz. 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 as Tested Skin: Normal Color, Warm/Dry Progress/Results/Core Measures Suspected Sepsis SIRS Temperature: Pulse: Respiratory Rate: Laboratory Tests 06/12/22 10:19: White Blood Count 11.3H Blood Pressure / Mean: Laboratory Tests 06/12/22 10:19: Creatinine 1.13, Platelet Count 271, Total Bilirubin 0.9 Results/Orders Lab Results Laboratory Tests Test 06/12/22 10:19 06/12/22 10:31 06/12/22 11:06 Range/Units White Blood Count 11.3 H 4.3-11.0 10^3/uL Red Blood Count 4.93 4.30-5.52 10^6/uL Hemoglobin 13.4 13.3-17.7 g/dL Hematocrit 39 L 40-54 % Mean Corpuscular Volume 79 L 80-99 fL Mean Corpuscular Hemoglobin 27 25-34 pg Mean Corpuscular Hemoglobin Concent 34 32-36 g/dL Red Cell Distribution Width 13.2 10.0-14.5 % Platelet Count 271 130-400 10^3/uL Mean Platelet Volume 9.6 9.0-12.2 fL Immature Granulocyte % (Auto) 0 % Neutrophils (%) (Auto) 82 H 42-75 % Lymphocytes (%) (Auto) 10 L 12-44 % Monocytes (%) (Auto) 7 0-12 % Eosinophils (%) (Auto) 1 0-10 % Basophils (%) (Auto) 0 0-10 % Neutrophils # (Auto) 9.3 H 1.8-7.8 10^3/uL Lymphocytes # (Auto) 1.1 1.0-4.0 10^3/uL Monocytes # (Auto) 0.8 0.0-1.0 10^3/uL Eosinophils # (Auto) 0.1 0.0-0.3 10^3/uL Basophils # (Auto) 0.0 0.0-0.1 10^3/uL Immature Granulocyte # (Auto) 0.0 0.0-0.1 10^3/uL Sodium Level 139 135-145 MMOL/L Potassium Level 4.4 3.6-5.0 MMOL/L Chloride Level 106 98-107 MMOL/L Carbon Dioxide Level 23 21-32 MMOL/L Anion Gap 10 5-14 MMOL/L Blood Urea Nitrogen 18 7-18 MG/DL Creatinine 1.13 0.60-1.30 MG/DL Estimat Glomerular Filtration Rate 80 BUN/Creatinine Ratio 16 Glucose Level 140 H 70-105 MG/DL Calcium Level 9.6 8.5-10.1 MG/DL Corrected Calcium 9.5 8.5-10.1 MG/DL Magnesium Level 2.0 1.6-2.4 MG/DL Total Bilirubin 0.9 0.1-1.0 MG/DL Aspartate Amino Transf (AST/SGOT) 22 5-34 U/L Alanine Aminotransferase (ALT/SGPT) 51 0-55 U/L Alkaline Phosphatase 206 H 40-136 U/L Troponin I < 0.028 <0.028 NG/ML C-Reactive Protein High Sensitivity 0.54 H 0.00-0.50 MG/DL Total Protein 6.8 6.4-8.2 GM/DL Albumin 4.1 3.2-4.5 GM/DL Influenza Type A (RT-PCR) Not Detected Not Detecte Influenza Type B (RT-PCR) Not Detected Not Detecte SARS-CoV-2 RNA (RT-PCR) Not Detected Not Detecte Urine Color DARK YELLOW Urine Clarity SL CLOUDY Urine pH 5.5 5-9 Urine Specific [place] >=1.030 1.016-1.022 Urine Protein 2+ H NEGATIVE Urine Glucose (UA) TRACE H NEGATIVE Urine Ketones NEGATIVE NEGATIVE Urine Nitrite NEGATIVE NEGATIVE Urine Bilirubin NEGATIVE NEGATIVE Urine Urobilinogen 1.0 < = 1.0 MG/DL Urine Leukocyte Esterase NEGATIVE NEGATIVE Urine RBC (Auto) NEGATIVE NEGATIVE Urine RBC NONE /HPF Urine WBC 2-5 /HPF Urine Squamous Epithelial Cells NONE /HPF Urine Crystals PRESENT H /LPF Urine Calcium Oxalate Crystals LARGE H /LPF Urine Amorphous Sediment LARGE JAYA URATES H /LPF Urine Bacteria TRACE /HPF Urine Casts PRESENT /LPF Urine Hyaline Casts 2-5 H /LPF Urine Mucus LARGE H /LPF Urine Culture Indicated NO My Orders Orders - DAVILA,LUCERO L DO Cbc With Automated Diff (06/12/22 10:18) Comprehensive Metabolic Panel (06/12/22 10:18) Hs C Reactive Protein (06/12/22 10:18) Magnesium (06/12/22 10:18) Troponin I Boundary (06/12/22 10:18) Ua Culture If Indicated (06/12/22 10:18) Influenza A And B By Pcr (06/12/22 10:18) Covid 19 Inhouse Test (06/12/22 10:18) Ekg Tracing (06/12/22 10:18) Monitor-Rhythm Ecg Trace Only (06/12/22 10:18) Vital Signs/I&O 06/12/22 10:11 Temp 36.4 Pulse 80 Resp 16 B/P (MAP) 124/77 (93) Capillary Refill : Progress Note : Progress Note Patient's labs were reviewed and showed minimally elevated white count and CRP. Patient with negative troponin. Patient with no acute findings on EKG when it was reviewed. Patient's blood sugar was just slightly elevated at 140 but would not Nestl cause patient's symptoms. Patient is blood pressures were stable throughout the stay. Discussed with patient that I suspect is likely early in a viral syndrome with just fatigue and malaise. At this time since his symptoms just started this morning it would be difficult to describe a course. That he likely will have some symptoms that develop gets worse before gets better. He should use supportive care, drink plenty of fluids, Tylenol ibuprofen. If his symptoms become significant worse follow-up with his primary care provider. At this time further testing is not missing indicated. He is stable and discharged home ECG Initial ECG Impression Date: Jun 12, 2022 Initial ECG Impression Time: 10:27 Initial ECG Rate: 79 Initial ECG Rhythm: Normal Sinus Initial ECG Intervals: Normal Comment no acute st changes or elevation Departure Impression Primary Impression: Nonspecific syndrome suggestive of viral illness Disposition: 01 HOME, SELF-CARE Condition: Stable Departure-Patient Inst. Referrals: MISSAEL BACK MD (PCP/Family) Primary Care Physician Patient Instructions: Viral Syndrome (DC) Add. Discharge Instructions: Encourage you to drink plenty of fluids, Tylenol or ibuprofen as needed. Follow-up with your primary care provider if symptoms become significant worse over the next couple days. Turn to the ER with any concerns All discharge instructions reviewed with patient and/or family. Voiced understanding. LUCERO DAVILA DO Jun 12, 2022 10:28
[2022-06-12 10:39] LABS: ALBUMIN 4.1 GM/DL (3.2-4.5); CHLORIDE 106 MMOL/L (98-107); POTASSIUM 4.4 MMOL/L (3.6-5.0); SODIUM 139 MMOL/L (135-145)
[2022-06-12 10:40] LABS: CALCIUM 9.6 MG/DL (8.5-10.1)
[2022-06-12 10:42] LABS: GLUCOSE 140 MG/DL (70-105); TOTAL PROTEIN 6.8 GM/DL (6.4-8.2)
[2022-06-12 10:43] LABS: BILIRUBIN,TOTAL 0.9 MG/DL (0.1-1.0); CARBON DIOXIDE 23 MMOL/L (21-32)
[2022-06-12 10:45] LABS: ALKALINE PHOSPHATASE 206 U/L (40-136); CREATININE SERUM 1.13 MG/DL (0.60-1.30); GFR ESTIMATED 80
[2022-06-12 10:46] LABS: BUN/CREATININE RATIO 16
[2022-06-12 10:48] LABS: ALANINE AMINOTRANSFERASE 51 U/L (0-55)
[2022-06-12 11:18] LABS: CLARITY,URINE SL CLOUDY; COLOR,URINE DARK YELLOW; GLUCOSE, URINE (UA) TRACE (NEGATIVE); KETONES,URINE NEGATIVE (NEGATIVE); LEUKOCYTE ESTERASE ,URINE NEGATIVE (NEGATIVE); NITRITE,URINE NEGATIVE (NEGATIVE); PH,URINE 5.5 (5-9); PROTEIN,URINE 2+ (NEGATIVE)
[2022-06-12 11:32] LABS: AMORPHOUS SEDIMENT,UR LARGE AMOR URATES /LPF; BACTERIA,URINE TRACE /HPF; BILIRUBIN,URINE NEGATIVE (NEGATIVE); CALCIUM OXALATE CRYSTALS,UR LARGE /LPF
[2022-06-12 11:48] VITALS: BP 122/81
== END 2022-06-12 11:50 | disposition home or self-care (01) ==
LOC: EDUNIT# 10:04 → ER 10:06
DX: R73.9 Hyperglycemia, unspecified (principal); D72.829 Elevated white blood cell count, unspecified; Z87.891 Personal history of nicotine dependence; Z20.822 Contact with and (suspected) exposure to COVID-19
CPT/HCPCS: 36415; 80053; 81000; 83735; 84484; 85025; 86141; 87636; 93005; 93041